=== PATIENT | female | born 1955 | race Caucasian/White ===

== ENCOUNTER → 2017-10-22 11:10 | Outpatient (REF) | payer OTHER, SELFPAY ==
[2017-10-22 13:48] LABS: Basophils % 0.6 % (0.1-2.0); Eosinophils # 0.2 K/mm3 (0.0-0.4); Eosinophils % 3.9 % (0.1-12.0); Hematocrit 42.4 % (37.0-47.0); Hemoglobin 13.2 g/dL (12.2-16.2); Lymphocytes # 1.4 K/mm3 (0.7-4.5); Lymphocytes % 23.7 K/mm3 (10-50); Mean Corpuscular HGB Conc 31.2 g/dL (31.8-35.4); Mean Corpuscular Hemoglobin 26.4 pg (27.0-31.2); Mean Corpuscular Volume 84.9 fl (81-99); Mean Platelet Volume 8.3 fl (7.4-10.4); Monocytes # 0.4 K/mm3 (0.1-1.0); Monocytes % 7.3 % (1.7-9.3); Neutrophils # 3.9 K/mm3 (1.8-7.8); Neutrophils % 64.5 % (37.0-80.0); Platelet Count 310 K/mm3 (142-424)
[2017-10-22 14:35] LABS: Alanine Aminotransferase 22 U/L (12-78); Albumin Level 3.4 gm/dL (3.4-5.0); Albumin/Globulin Ratio 0.8 (1.1-1.8); Alkaline Phosphatase 125 U/L (46-116); Anion Gap 12.9 mEq/L (5-15); Aspartate Amino Transferase 13 U/L (15-37); Bilirubin,Total 0.5 mg/dL (0.2-1.0); Blood Urea Nitrogen 19 mg/dL (7-18); Calcium 9.6 mg/dL (8.5-10.1); Carbon Dioxide 29 mmol/L (21.0-32.0); Chloride 100 mmol/L (98-107); Chol/HDL Ratio 3.7 (1-3.5); Cholesterol 157 mg/dL (140-200); Creatinine,Serum 1.21 mg/dL (0.55-1.02); Estimated Glomerular Filt Rate 45 ml/min (>60); GFR (African American) 55 ML/MIN (>60); Globulin 4.5 gm/dl (1.3-3.2); Glucose 140 mg/dL (74-106); HDL Cholesterol 42 mg/dL (29-89); LDL Cholesterol 95 mg/dL (0-130); Potassium 3.9 mmoL/L (3.5-5.1); Sodium 138 mmol/L (136-145); Thyroid Stimulating Hormone 2.05 uIU/ml (0.358-3.740); Total Protein,Serum 7.9 gm/dL (6.4-8.2); Triglycerides 102 mg/dL (30-200); VLDL Cholesterol 20 mg/dL (0-40)
[2017-10-24 12:01] LABS: Vitamin D 25 Hydroxy 8.1 ng/mL (30.0-100.0)
== END ==
LOC: LAB 11:10
PROVIDERS: Visit Provider Physician Assistant
DX: I10 Essential (primary) hypertension (principal)
CPT/HCPCS: 80053; 80061; 82652; 84436; 84443; 85025

== ENCOUNTER → 2018-03-19 11:13 | Outpatient (REF) | payer OTHER, SELFPAY | LOC: LAB 11:13 | PROVIDERS: Visit Provider Nurse Practitioner Family | DX: R39.89 Other symptoms and signs involving the genitourinary system (principal) | CPT/HCPCS: 87086 ==

== ENCOUNTER → 2019-09-24 13:24 | Outpatient (CLI) | payer OTHER, SELFPAY ==
[2019-09-24 13:34] LABS: Basophils # 0.1 K/mm3 (0-0.2); Basophils % 0.9 % (0.1-2.0); Eosinophils # 0.2 K/mm3 (0.0-0.4); Eosinophils % 3.1 % (0.1-12.0); Hematocrit 44.6 % (37.0-47.0); Hemoglobin 14.3 g/dL (12.2-16.2); Lymphocytes % 19.6 % (10-50); Mean Corpuscular HGB Conc 32.2 g/dL (31.8-35.4); Mean Corpuscular Hemoglobin 27.2 pg (27.0-31.2); Mean Corpuscular Volume 84.5 fl (81-99); Mean Platelet Volume 10.1 fl (7.4-10.4); Monocytes # 0.4 K/mm3 (0.1-1.0); Monocytes % 7.1 % (1.7-9.3); Neutrophils # 3.5 K/mm3 (1.8-7.8); Neutrophils % 69.3 % (37.0-80.0); Platelet Count 272 K/mm3 (142-424); Red Blood Count 5.28 M/mm3 (4.20-5.40); Red Cell Distribution Width 13.9 % (11.5-17.5)
[2019-09-24 14:16] LABS: Alanine Aminotransferase 16 U/L (12-78); Albumin Level 3.5 gm/dL (3.4-5.0); Albumin/Globulin Ratio 0.9 (1.1-1.8); Alkaline Phosphatase 133 U/L (46-116); Anion Gap 14.6 mEq/L (5-15); Aspartate Amino Transferase 15 U/L (15-37); Bilirubin,Total 0.6 mg/dL (0.2-1.0); Blood Urea Nitrogen 14 mg/dL (7-18); Calcium 9.3 mg/dL (8.5-10.1); Carbon Dioxide 27 mmol/L (21.0-32.0); Chloride 96 mmol/L (98-107); Chol/HDL Ratio 5.9 (1-3.5); Cholesterol 177 mg/dL (140-200); Estimated Glomerular Filt Rate 46 ml/min (>60); GFR (African American) 55 ML/MIN (>60); HDL Cholesterol 30 mg/dL (29-89); LDL Cholesterol 89 mg/dL (0-130); Potassium 3.6 mmoL/L (3.5-5.1); Sodium 134 mmol/L (136-145); T4 (Thyroxine) 9.8 ug/dl (4.7-13.3); Thyroid Stimulating Hormone 1.43 uIU/ml (0.358-3.740); Total Protein,Serum 7.5 gm/dL (6.4-8.2); Triglycerides 290 mg/dL (30-200); VLDL Cholesterol 58 mg/dL (0-40)
[2019-09-24 14:50] LABS: Glucose 551 mg/dL (74-106)
[2019-09-24 15:17] LABS: Hemoglobin A1C 11.5 % (0.0-7.0)
[2019-09-25 17:02] LABS: Vitamin D 25 Hydroxy 6.6 ng/mL (30.0-100.0)
== END ==
PROVIDERS: Visit Provider Physician Assistant
DX: I10 Essential (primary) hypertension (principal); E55.9 Vitamin D deficiency, unspecified; R73.09 Other abnormal glucose
CPT/HCPCS: 80053; 80061; 82652; 83036; 84436; 84443; 85025

== ENCOUNTER → 2020-11-01 14:41 | Outpatient (CLI) | payer OTHER, SELFPAY ==
[2020-11-01 15:06] LABS: Basophils % 0.8 % (0.1-2.0); Eosinophils # 0.2 K/mm3 (0.0-0.4); Eosinophils % 3.2 % (0.1-12.0); Hematocrit 42.1 % (37.0-47.0); Hemoglobin 14.1 g/dL (12.2-16.2); Lymphocytes # 1.2 K/mm3 (0.7-4.5); Lymphocytes % 24.9 % (10-50); Mean Corpuscular HGB Conc 33.6 g/dL (31.8-35.4); Mean Corpuscular Hemoglobin 27.3 pg (27.0-31.2); Mean Corpuscular Volume 81.3 fl (81-99); Mean Platelet Volume 9.1 fl (7.4-10.4); Monocytes # 0.4 K/mm3 (0.1-1.0); Neutrophils # 3.1 K/mm3 (1.8-7.8); Neutrophils % 63.1 % (37.0-80.0); Platelet Count 297 K/mm3 (142-424); Red Blood Count 5.18 M/mm3 (4.20-5.40); Red Cell Distribution Width 14.6 % (11.5-17.5); White Blood Count 4.9 K/mm3 (4.8-10.8)
[2020-11-01 16:18] LABS: Hemoglobin A1C 10.9 % (4.0-6.0)
[2020-11-01 16:21] LABS: Alanine Aminotransferase 18 U/L (12-78); Albumin Level 4.4 g/dl (3.5-5.0); Albumin/Globulin Ratio 1.1 (1.1-1.8); Alkaline Phosphatase 110 U/L (38-126); Anion Gap 13.2 mEq/L (5-15); Aspartate Amino Transferase 28 U/L (14-36); Bilirubin,Total 0.6 mg/dl (0.2-1.3); Blood Urea Nitrogen 26 mg/dl (7-17); Calcium 11.2 mg/dl (8.4-10.2); Carbon Dioxide 27 mmol/L (22.0-30.0); Chloride 101 mmol/L (98-107); Chol/HDL Ratio 5.6 (1-3.5); Cholesterol 214 mg/dl (140-200); Estimated Glomerular Filt Rate 56 ml/min (>60); GFR (African American) 68 ML/MIN (>60); Globulin 3.9 g/dL (1.3-3.2); Glucose 227 mg/dl (74-100); HDL Cholesterol 38 mg/dl (40-60); Potassium 4.2 mmoL/L (3.5-5.1); Sodium 137 mmol/L (136-145); Total Protein,Serum 8.3 g/dl (6.3-8.2); Triglycerides 212 mg/dl (30-150); VLDL Cholesterol 42 mg/dL (0-40)
[2020-11-01 16:31] LABS: Direct LDL Cholesterol 135.49 mg/dL (100-129)
[2020-11-01 16:40] LABS: Free T4 (Free Thyroxine) 1.55 ng/dl (0.78-2.19)
[2020-11-01 16:55] LABS: Thyroid Stimulating Hormone 2.17 uIU/mL (0.465-4.68)
[2020-11-01 16:58] LABS: 25-OH Vitamin D, Total < 12.8 ng/mL (30-100)
== END ==
PROVIDERS: Visit Provider Physician Assistant
DX: E11.9 Type 2 diabetes mellitus without complications (principal); E55.9 Vitamin D deficiency, unspecified; I10 Essential (primary) hypertension; Z79.84 Long term (current) use of oral hypoglycemic drugs
CPT/HCPCS: 80053; 80061; 82043; 82306; 83036; 84439; 84443; 85025

== ENCOUNTER → 2023-06-03 23:53 | Outpatient (CLI) | payer OTHER, SELFPAY ==
[2023-06-03 19:24] LABS: Basophils % 0.5 % (0.1-2.0); Eosinophils # 0.2 K/mm3 (0.0-0.4); Eosinophils % 3.5 % (0.1-12.0); Hemoglobin 14.6 g/dL (12.2-16.2); Lymphocytes # 1.3 K/mm3 (0.7-4.5); Lymphocytes % 21.3 % (10-50); Mean Corpuscular HGB Conc 34.6 g/dL (31.8-35.4); Mean Corpuscular Hemoglobin 29.2 pg (27.0-31.2); Mean Corpuscular Volume 84.4 fl (81-99); Mean Platelet Volume 10.7 fl (7.4-10.4); Monocytes # 0.4 K/mm3 (0.1-1.0); Monocytes % 7.5 % (1.7-9.3); Neutrophils % 67.3 % (37.0-80.0); Platelet Count 255 K/mm3 (142-424); Red Blood Count 4.98 M/mm3 (4.20-5.40); Red Cell Distribution Width 14.6 % (11.5-17.5); White Blood Count 5.9 K/mm3 (4.8-10.8)
[2023-06-03 19:32] LABS: Alanine Aminotransferase 16 U/L (12-78); Albumin Level 4.1 g/dl (3.5-5.0); Albumin/Globulin Ratio 1.1 (1.1-1.8); Alkaline Phosphatase 185 U/L (38-126); Anion Gap 15.3 mEq/L (5-15); Aspartate Amino Transferase 24 U/L (14-36); Bilirubin,Total 0.4 mg/dl (0.2-1.3); Blood Urea Nitrogen 20 mg/dl (7-17); Calcium 9.6 mg/dl (8.4-10.2); Carbon Dioxide 28 mmol/L (22.0-30.0); Chloride 98 mmol/L (98-107); Chol/HDL Ratio 4.5 (1-3.5); Cholesterol 194 mg/dl (140-200); Estimated Glomerular Filt Rate 63 ml/min (>60); GFR (African American) 76 ML/MIN (>60); Globulin 3.9 g/dL (1.3-3.2); Glucose 390 mg/dl (74-100); HDL Cholesterol 43 mg/dl (40-60); Iron 62 ug/dL (37-170); Potassium 4.3 mmoL/L (3.5-5.1); Sodium 137 mmol/L (136-145); Triglycerides 223 mg/dl (30-150); VLDL Cholesterol 45 mg/dL (0-40)
[2023-06-03 19:49] LABS: 25-OH Vitamin D, Total 13.7 ng/mL (30-100)
[2023-06-03 19:53] LABS: T4 (Thyroxine) 10.1 ug/dl (5.53-11.0)
[2023-06-03 19:55] LABS: Total Iron Binding Capacity 354 ug/dL (265-497)
[2023-06-03 20:02] LABS: Thyroid Stimulating Hormone 2.06 uIU/mL (0.465-4.68)
[2023-06-03 20:10] LABS: Ferritin 36.3 ng/ml (11.1-264)
[2023-06-03 20:26] LABS: Vitamin B12 255 pg/mL (239-931)
[2023-06-03 20:45] LABS: Hemoglobin A1C 11.3 % (4.0-6.0)
== END ==
PROVIDERS: PCP Physician Assistant; Visit Provider Physician Assistant
DX: E11.9 Type 2 diabetes mellitus without complications (principal); I10 Essential (primary) hypertension; E55.9 Vitamin D deficiency, unspecified; Z68.30 Body mass index [BMI] 30.0-30.9, adult; Z79.84 Long term (current) use of oral hypoglycemic drugs
CPT/HCPCS: 80053; 80061; 82043; 82306; 82607; 82728; 83036; 83540; 83550; 84436; 84443; 85025

== ENCOUNTER 2023-11-08 11:24 | Emergency (ER) | payer OTHER, SELFPAY ==
[2023-11-08 11:25] VITALS: BP 203/96; PULSE 83; RESP 15; TEMP 36.5; O2SAT 95; BMI 31.6
[2023-11-08 11:31] VITALS: BP 217/99; PULSE 82; O2SAT 97
--- NOTE | 2023-11-08 11:33 | ECG_ITS ---
APPROVED REPORT Exam: Resting ECG HR:79 bpm ECG Measurements Heart Rate 79 AXES UT 182 P 63 QRSd 85 QRS 72 QT 384 T 74 QTc 419 Conclusion SINUS RHYTHM NORMAL ECG UNCONFIRMED REPORT Electronically signed by : John Paul Amado, 11/09/2023 14:20:57
--- NOTE | 2023-11-08 11:54 | CT_ITS ---
FINAL REPORT CLINICAL HISTORY: RUE and RLE weakness 1800 yesterday FINDINGS: Axial images of the head were obtained without contrast. Coronal reformatted images were also obtained. This study was performed with techniques to keep radiation doses as low as reasonably achievable (ALARA). Individualized dose reduction techniques using automated exposure control or adjustment of mA and/or kV according to the patient's size were employed. There is generalized age-appropriate atrophy. Periventricular low-attenuation areas are seen consistent with mild chronic ischemic changes. There is no evidence of intracranial hemorrhage or mass. There is no evidence of acute infarct. There is no evidence of shift of the midline structures. No skull abnormality is seen on the bone window images. IMPRESSION: Atrophy and mild periventricular chronic ischemic changes. No acute intracranial abnormality identified. Reviewed, Interpreted and Dictated by Lisandro Recinos III, MD Transcribed by Ai Teran Authenticated and [facility]
--- NOTE | 2023-11-08 11:58 | ED_ITS ---
Discharge Plan Disposition Patient Disposition: Home, Self-Care Prescriptions Prescriptions: No Action escitalopram oxalate [Lexapro] 20 mg tablet 20 mg PO QDAY 30 Days Qty: 30 2RF Vraylar 1.5 mg capsule 1.5 mg PO DAILY Qty: 30 2RF aspirin 81 mg tablet,delayed release (DR/EC) 81 mg PO DAILY Qty: 90 3RF (DME) blood-glucose meter [Blood Glucose Monitoring] Kit See Rx Instructions .ROUTE .MEDSUPPLY Qty: 1 0RF Rx Instructions: As directed (DME) Blood Glucose Test Strip See Rx Instructions .ROUTE .MEDSUPPLY Qty: 50 2RF Rx Instructions: once daily carvedilol 6.25 mg tablet See Rx Instructions .ROUTE .COMPLEX Qty: 180 0RF Dose Instruction: TAKE 1 TABLET BY MOUTH TWICE DAILY FOR BLOOD PRESSURE Rx Instructions: TAKE 1 TABLET BY MOUTH TWICE DAILY FOR BLOOD PRESSURE cholecalciferol (vitamin D3) [Vitamin D3] 25 mcg (1,000 unit) capsule See Rx Instructions .ROUTE .COMPLEX Qty: 30 0RF Dose Instruction: TAKE 1 CAPSULE BY MOUTH ONCE DAILY WITH A MEAL FOR SUPPLEMENT Rx Instructions: TAKE 1 CAPSULE BY MOUTH ONCE DAILY WITH A MEAL FOR SUPPLEMENT ergocalciferol (vitamin D2) 1,250 mcg (50,000 unit) capsule See Rx Instructions .ROUTE .COMPLEX Qty: 4 0RF Dose Instruction: Take 1 capsule by mouth once a week Rx Instructions: Take 1 capsule by mouth once a week Januvia 100 mg tablet 100 mg PO DAILY Qty: 30 2RF Farxiga 10 mg tablet 10 mg PO DAILY Qty: 30 2RF ergocalciferol (vitamin D2) 1,250 mcg (50,000 unit) capsule 1,250 mcg PO WEEKLY Qty: 5 2RF albuterol sulfate [Ventolin HFA] 90 mcg/actuation HFA aerosol inhaler See Rx Instructions .ROUTE .COMPLEX Qty: 18 0RF Dose Instruction: INHALE 2 PUFFS BY MOUTH EVERY 4 TO 6 HOURS NEEDED FOR SHORTNESS OF BREATH OR WHEEZING . APPOINTMENT REQUIRED FOR FUTURE REFILLS Rx Instructions: INHALE 2 PUFFS BY MOUTH EVERY 4 TO 6 HOURS NEEDED FOR SHORTNESS OF BREATH OR WHEEZING . APPOINTMENT REQUIRED FOR FUTURE REFILLS atorvastatin 20 mg tablet See Rx Instructions .ROUTE .COMPLEX Qty: 30 0RF Dose Instruction: TAKE 1 TABLET BY MOUTH AT BEDTIME Rx Instructions: TAKE 1 TABLET BY MOUTH AT BEDTIME glipizide 5 mg tablet extended release 24hr See Rx Instructions .ROUTE .COMPLEX Qty: 30 0RF Dose Instruction: TAKE 1 TABLET BY MOUTH ONCE DAILY . APPOINTMENT REQUIRED FOR FUTURE REFILLS Rx Instructions: TAKE 1 TABLET BY MOUTH ONCE DAILY . APPOINTMENT REQUIRED FOR FUTURE REFILLS lisinopril 5 mg tablet See Rx Instructions .ROUTE .COMPLEX Qty: 30 0RF Dose Instruction: TAKE 1 TABLET BY MOUTH ONCE DAILY. APPOINTMENT REQUIRED FOR FUTURE REFILLS Rx Instructions: TAKE 1 TABLET BY MOUTH ONCE DAILY. APPOINTMENT REQUIRED FOR FUTURE REFILLS triamterene-hydrochlorothiazid 37.5-25 mg tablet See Rx Instructions .ROUTE .COMPLEX Qty: 90 0RF Dose Instruction: TAKE 1 TABLET BY MOUTH ONCE DAILY . APPOINTMENT REQUIRED FOR FUTURE REFILLS Rx Instructions: TAKE 1 TABLET BY MOUTH ONCE DAILY . APPOINTMENT REQUIRED FOR FUTURE REFILLS metformin 500 mg tablet extended release 24 hr 500 mg PO DAILY Qty: 30 2RF Referrals Follow up/Referrals: Verenice Contreras PA [Primary Care Provider] - See instructions Geremias Brush DO [Staff Physician] - See instructions Activity Restrictions/Add. Instructions Additional Instructions/Restrictions: No objective weakness was identified on your physical exam in your right upper and right lower extremity. The noncontrasted CT scan of your head did not demonstrate a stroke. No other emergent cardiovascular or neurovascular emergency was identified. Cannot rule out a TIA as discussed and we were unable to get vascular imaging due to your refusal to allow us to administer contrast on your CT scans. Nonetheless I do not believe you had a TIA but this is possible. I advised that you closely follow-up to primary care doctor and return to the emergency department with any recurrence or worsening of your neurologic symptoms. Lastly regarding her chronic knee pain referral has been made to our orthopedic surgeon for evaluation of likely chronic degenerative disease and management options associated with that. Clinical Impressions Clinical Impression: Arm pain, right, Leg pain, right Discharge ED Provider: Rere Amado General Adult [facility] General Chief complaint: Neuro Symptoms/Deficit Stated complaint: weakness Time Seen by Provider: 11/08/23 11:41 Mode of Arrival: Ambulatory Source of Information: Patient and EMS Limitations: No Limitations Description of Symptoms (Recalled from ER Triage Doc. by RN): pt presents to ED via EMS for stroke like symptoms, weakness. symptoms began last night 1800. pts daughter at bedside also reports pt has had fall last night and this morning. pt reports she got weak and her right leg gave out . pt reports feeling weakness in right arm. History of Present Illness HPI narrative: Patient is a 68-year-old diabetic with hypertension who presents today with concerns for right upper and right lower extremity weakness which began yesterday around 1600. States that she felt her right leg give out and her right upper extremity having difficulty with movement but states that during the entire time she has been able to move it without difficulty and just had a sensation of feeling heavy. Symptoms have been very mild the entirety of the course. No fevers chills cough urinary symptoms or other concerns. She does want to get checked out. No history of CVA. Related Data Previous Rx's Medication Instructions Recorded aspirin 81 mg tablet,delayed 81 mg PO DAILY Heart disease #90 07/28/19 release tabs blood-glucose meter (Blood Glucose #1 ea 09/25/19 Monitoring kit) blood sugar diagnostic (Blood #50 ea 10/07/19 Glucose Test strips) carvedilol 6.25 mg tablet See Rx Instructions .Route 12/29/19 .COMPLEX #180 tabs cholecalciferol (vitamin D3) 25 See Rx Instructions .Route 03/04/23 mcg (1,000 unit) capsule (Vitamin .COMPLEX #30 caps D3) ergocalciferol (vitamin D2) 1,250 See Rx Instructions .Route 03/04/23 mcg (50,000 unit) capsule .COMPLEX #4 caps cariprazine 1.5 mg capsule 1.5 mg PO DAILY #30 caps 06/03/23 (Vraylar) escitalopram oxalate 20 mg tablet 20 mg PO QDAY 30 days #30 tabs 06/03/23 (Lexapro) dapagliflozin propanediol 10 mg 10 mg PO DAILY #30 tabs 06/05/23 tablet (Farxiga) ergocalciferol (vitamin D2) 1,250 1,250 mcg PO WEEKLY #5 caps 06/05/23 mcg (50,000 unit) capsule sitagliptin phosphate 100 mg 100 mg PO DAILY #30 tabs 06/05/23 tablet (Januvia) Ventolin HFA 90 mcg/actuation See Rx Instructions .Route 09/19/23 aerosol inhaler (albuterol sulfate) .COMPLEX #18 grams atorvastatin 20 mg tablet See Rx Instructions .Route 09/19/23 .COMPLEX #30 tabs glipizide 5 mg tablet, extended See Rx Instructions .Route 09/19/23 release 24 hr .COMPLEX #30 tabs lisinopril 5 mg tablet See Rx Instructions .Route 09/19/23 .COMPLEX #30 tabs metformin 500 mg tablet,extended 500 mg PO DAILY #30 tabs 09/19/23 release 24 hr triamterene 37.5 See Rx Instructions .Route 09/19/23 mg-hydrochlorothiazide 25 mg tablet .COMPLEX #90 tabs Allergies Allergy/AdvReac Type Severity Reaction Status Date / Time penicillin G Allergy Mild Hives Verified 06/03/23 10:29 Sulfa (Sulfonamide AdvReac Intermediate rash on Verified 06/03/23 10:29 Antibiotics) [facility] Disclaimer: The information contained in this section may have been updated after the patient was seen, as this information can be updated by other users. Medical History Depression Hypertension Vitamin D deficiency Social History Smoking Status: Never smoker alcohol intake: never substance use type: denies use current occupational status: retired Travel in the last 8 weeks: None ROS Obtained: Yes All systems reviewed & no additional complaints except as documented Physical Exam General General appearance: alert and in no apparent distress Respiratory Respiratory exam: Present normal lung sounds bilaterally Cardiovascular Cardiovascular exam: Present regular rate and normal rhythm Neurological Exam Neurological exam: Present alert, oriented X3, CN II-XII intact, normal gait and other (Specifically no right pronator drift she has proximal and distal strength in right upper and right lower extremity); Absent motor sensory deficit Medical Decision Making Ki Inquiry Pt receiving controlled substance: No Vital Signs: 11/08/23 11:25 11/08/23 11:31 11/08/23 12:00 Temperature 97.7 F Temperature Source Oral Pulse Rate 82 77 Pulse Rate [Left Radial] 83 Respiratory Rate 15 Blood Pressure 217/99 H 183/98 H Blood Pressure [Right Arm] 203/96 H Blood Pressure Mean 111 126 Blood Pressure Mean [Right Arm] 131 02 Sat by Pulse Oximetry 95 97 97 Oxygen Delivery Method Room Air Room Air Room Air 11/08/23 13:00 Temperature Temperature Source Pulse Rate 80 Pulse Rate [Left Radial] Respiratory Rate 20 Blood Pressure 149/75 H Blood Pressure [Right Arm] Blood Pressure Mean 115 Blood Pressure Mean [Right Arm] 02 Sat by Pulse Oximetry 97 Oxygen Delivery Method Lab Data Lab results reviewed: Yes I reviewed the patient's lab results. Lab Results 11/08/23 11:27: WBC 7.1, RBC 5.21, Hgb 14.5, Hct 43.7, MCV 83.9, MCH 27.8, MCHC 33.2, RDW 14.3, Plt Count 233, MPV 8.5, Neut % (Auto) 72.8, Lymph % (Auto) 18.4, [place] % (Auto) 6.6, Eos % (Auto) 1.4, Baso % (Auto) 0.9, Neut # (Auto) 5.2, Lymph # (Auto) 1.3, [place] # (Auto) 0.5, Eos # (Auto) 0.1, Baso # (Auto) 0.1, PT 10.7, INR 0.99, APTT 24.9, Sodium 135 L, Potassium 3.9, Chloride 100, Carbon Dioxide 28, Anion Gap 10.9, BUN 17, Creatinine 0.90, Estimated Creat Clear 70, Estimated GFR 62, Est GFR ( Amer) 76, Glucose 310 H, Calcium 9.5, Total Bilirubin 0.7, AST 24, ALT 21, Alkaline Phosphatase 153 H, Troponin I < 0.01, Total Protein 7.5, Albumin 4.0, Globulin 3.5 H, Albumin/Globulin Ratio 1.1 11/08/23 11:27 11/08/23 11:27 Orders (Tests/Meds): ED MEDICATIONS Generic Name Dose Route Start Last Admin Trade Name Freq PRN Reason Stop Dose Admin Ketorolac Tromethamine 15 mg 11/08/23 13:33 Ketorolac 30mg/Ml Vial IV 11/08/23 13:34 ONCE ONE Discontinued Medications Generic Name Dose Route Start Last Admin Trade Name Freq PRN Reason Stop Dose Admin Acetaminophen 1,000 mg 11/08/23 13:21 11/08/23 13:33 Acetaminophen 500mg Tab PO 11/08/23 13:22 Not Given ONCE ONE Lactated Ringer's 1,000 mls @ 999 mls/hr 11/08/23 12:00 11/08/23 12:00 Lactated Ringer's 1000 Ml Bag IV 11/08/23 13:00 999 mls/hr .Q1H1M SEEMA Administration ORDERS Category Date Time Status CT head/brain wo con Stat Cat Scan 11/08/23 11:54 Completed CBC w/Auto Diff [Complete Blood Count Auto Diff] Stat Lab 11/08/23 11:27 Completed CMP [Comprehensive Metabolic Panel] Stat Lab 11/08/23 11:27 Completed PT/PTT Stat Lab 11/08/23 11:27 Completed Trop I [Troponin I] Stat Lab 11/08/23 11:27 Completed Troponin I Q3H Lab 11/08/23 15:00 Ordered Troponin I Q3H Lab 11/08/23 18:00 Ordered Medical Decision Narrative: Patient with above history and physical. Objectively she has an NIH of 0 she claims that her symptoms are ongoing but objectively there is no weakness. Will get a noncontrasted CT scan of her head as well as CT angio of head and neck. She does have chronic discomfort in both of these extremities and states she has had some pain which she feels may have been the cause of the sensation of them going out on her. If her workup is negative I do not believe that this is a TIA and she will be reassured. Will reassess shortly. EKG performed at person interpreted shows a ventricular rate of 79 normal sinus rhythm no acute ischemic changes or significant conduction abnormalities there is normal axis. Reassessment 1:36 PM serial neurologic exams are normal. Patient actually refused angiography or contrasted studies. She refused on the basis of having contrast administered many years ago which made her very warm. No history of anaphylaxis etc. I had an extensive discussion with her about this and she understood the risk of not getting contrasted studies and understood that I would not be able to see any vascular pathology and she understood this and still refused. Noncontrasted CT scan of the head performed which I personally interpreted also reviewed radiology read which showed no acute intracranial pathology. Again her serial neurologic exams are normal and her initial neurologic exam for me was normal. She did have some chronic knee pain which has been as stated above causing her to lose some tone which is likely the cause of the weakness that she demonstrated or discussed. She was able to walk without difficulty with a walker which she will be using at home. A referral was made to orthopedic surgeon for further evaluation and management of her chronic knee pain. She has been advised to return to the emergency department with any recurrence or worsening of her neurologic symptoms. Cannot rule out a TIA right now and I discussed with the family and they are understanding. Not clinically diagnosing her with that at this point without any objective abnormalities on neurologic exam. Critical Care Critical Care Time Critical Care Time: No
[2023-11-08 12:00] VITALS: BP 183/98; PULSE 77; O2SAT 97
[2023-11-08] MEDS: LACTATED RINGERS 1000ML 1,000 ML 999 ML IV (12:00)
[2023-11-08 12:06] LABS: Chloride 100 mmol/L (98-107); Potassium 3.9 mmoL/L (3.5-5.1); Sodium 135 mmol/L (136-145)
[2023-11-08 12:09] LABS: Alanine Aminotransferase 21 U/L (12-78); Albumin/Globulin Ratio 1.1 (1.1-1.8); Alkaline Phosphatase 153 U/L (38-126); Anion Gap 10.9 mEq/L (5-15); Aspartate Amino Transferase 24 U/L (14-36); Bilirubin,Total 0.7 mg/dl (0.2-1.3); Blood Urea Nitrogen 17 mg/dl (7-17); Calcium 9.5 mg/dl (8.4-10.2); Carbon Dioxide 28 mmol/L (22.0-30.0); Creatinine Clearance Estimated 70 mL/min (50-200); Estimated Glomerular Filt Rate 62 ml/min (>60); GFR (African American) 76 ML/MIN (>60); Globulin 3.5 g/dL (1.3-3.2); Glucose 310 mg/dl (74-100); Total Protein,Serum 7.5 g/dl (6.3-8.2)
[2023-11-08 12:10] LABS: Basophils # 0.1 K/mm3 (0-0.2); Basophils % 0.9 % (0.1-2.0); Eosinophils # 0.1 K/mm3 (0.0-0.4); Eosinophils % 1.4 % (0.1-12.0); Hematocrit 43.7 % (37.0-47.0); Hemoglobin 14.5 g/dL (12.2-16.2); Lymphocytes # 1.3 K/mm3 (0.7-4.5); Lymphocytes % 18.4 % (10-50); Mean Corpuscular HGB Conc 33.2 g/dL (31.8-35.4); Mean Corpuscular Hemoglobin 27.8 pg (27.0-31.2); Mean Corpuscular Volume 83.9 fl (81-99); Mean Platelet Volume 8.5 fl (7.4-10.4); Monocytes # 0.5 K/mm3 (0.1-1.0); Monocytes % 6.6 % (1.7-9.3); Neutrophils # 5.2 K/mm3 (1.8-7.8); Neutrophils % 72.8 % (37.0-80.0); Platelet Count 233 K/mm3 (142-424); Red Blood Count 5.21 M/mm3 (4.20-5.40); Red Cell Distribution Width 14.3 % (11.5-17.5); White Blood Count 7.1 K/mm3 (4.8-10.8)
[2023-11-08 12:11] LABS: Activated Partial Thrombo Time 24.9 seconds (22.8-30.6); INR 0.99 (0.9-1.1); Prothrombin Time 10.7 seconds (10.1-12.5)
[2023-11-08 12:22] LABS: Troponin I < 0.01 ng/ml (0.00-0.034)
[2023-11-08 13:00] VITALS: BP 149/75; PULSE 80; RESP 20; O2SAT 97
--- NOTE | 2023-11-08 13:24 | PC.NURSE ---
Dr. Amado is at bedside discussing results and POC
[2023-11-08] MEDS: KETOROLAC 30MG/ML VIAL 15 MG IV (13:37)
[2023-11-08 13:41] VITALS: BP 158/100; PULSE 81; RESP 20; TEMP 36.6; O2SAT 96
== END 2023-11-08 13:45 | disposition home or self-care (01) ==
PROVIDERS: Emergency Provider Student in an Organized Health Care Education/Training Program; PCP Physician Assistant
DX: R53.1 Weakness (principal); E11.9 Type 2 diabetes mellitus without complications; I10 Essential (primary) hypertension
CPT/HCPCS: 70450; 80053; 84484; 85025; 85610; 85730; 93005; 96361; 96374; 99285

== ENCOUNTER 2023-11-09 02:40 | Emergency (ER) | payer OTHER, SELFPAY ==
[2023-11-09 02:41] VITALS: BP 201/90; PULSE 89; RESP 18; TEMP 36.9; O2SAT 98; BMI 31.4
--- NOTE | 2023-11-09 02:50 | CT_ITS ---
PROCEDURE INFORMATION: Exam: CTA Head With Contrast, Arteriography Exam date and time: 11/09/2023 3:02 AM Age: 68 years old Clinical indication: Stroke-like symptoms; Right facial droop; Additional info: Stroke alert R side deficits TECHNIQUE: Imaging protocol: Computed tomographic angiography of the head with contrast. Exam focused on the arteries. 3D rendering (Not supervised by radiologist): MIP and/or 3D reconstructed images were created by the technologist. Radiation optimization: All CT scans at this facility use at least one of these dose optimization techniques: automated exposure control; mA and/or kV adjustment per patient size (includes targeted exams where dose is matched to clinical indication); or iterative reconstruction. Contrast material: ISVOUE 370; Contrast volume: 100 ml; Contrast route: INTRAVENOUS (IV); COMPARISON: CT HEAD/BRAIN WO CON 11/09/2023 3:00 AM FINDINGS: ANTERIOR CIRCULATION: Right internal carotid artery: Calcific plaque in right internal carotid artery. At least mild stenosis and ophthalmic segment. No occlusion or aneurysm. Right middle cerebral artery: No occlusion or significant stenosis. No aneurysm. Right anterior cerebral artery: No occlusion or significant stenosis. No aneurysm. Left internal carotid artery: Calcific plaque in left internal carotid artery. At least mild stenosis in the ophthalmic segment. No occlusion or aneurysm. Left middle cerebral artery: No occlusion or significant stenosis. No aneurysm. Left anterior cerebral artery: No occlusion or significant stenosis. No aneurysm. POSTERIOR CIRCULATION: Right vertebral artery: No occlusion or significant stenosis. No aneurysm. Left vertebral artery: No occlusion or significant stenosis. No aneurysm. Basilar artery: No occlusion or significant stenosis. No aneurysm. Right posterior cerebral artery: No occlusion or significant stenosis. No aneurysm. Left posterior cerebral artery: No occlusion or significant stenosis. No aneurysm. Veins: The internal cerebral veins, vein of Ricky, straight sinus, superior sagittal sinus and bilateral transverse and sigmoid sinuses are grossly patent. Brain: No definite mass, mass effect, or midline shift. Cerebral ventricles: No ventriculomegaly. Bones/joints: Unremarkable. No acute fracture. Soft tissues: Unremarkable. IMPRESSION: 1. No large vessel occlusion. 2. Dense calcific plaque in both cavernous and supraclinoid internal carotid arteries, with at least mild stenosis in the ophthalmic segment of each.
--- NOTE | 2023-11-09 02:50 | CT_ITS ---
PROCEDURE INFORMATION: Exam: CT Head Without Contrast Exam date and time: 11/09/2023 3:00 AM Age: 68 years old Clinical indication: Stroke-like symptoms; Right facial droop; Additional info: Stroke alert TECHNIQUE: Imaging protocol: Computed tomography of the head without contrast. Radiation optimization: All CT scans at this facility use at least one of these dose optimization techniques: automated exposure control; mA and/or kV adjustment per patient size (includes targeted exams where dose is matched to clinical indication); or iterative reconstruction. Other technique: STROKE PROTOCOL was implemented. COMPARISON: CT HEAD/BRAIN WO CON 11/08/2023 12:22 PM FINDINGS: Brain: No acute intracranial hemorrhage or acute large territory infarct. Mild chronic white matter changes, likely secondary to chronic small-vessel ischemic changes. Subtle small hypodense area in the left atkins radiata, unchanged from earlier CT. Cerebral ventricles: No ventriculomegaly. Paranasal sinuses: Visualized sinuses are unremarkable. No fluid levels. Mastoid air cells: Visualized mastoid air cells are well aerated. Bones/joints: Unremarkable. No acute fracture. Soft tissues: Unremarkable. IMPRESSION: 1. No significant interval change. 2. No acute intracranial hemorrhage or acute large territory infarct. 3. Subtle small hypodense area in the left atkins radiata, unchanged from earlier CT. Could represent asymmetric chronic microvascular changes, but can not exclude an acute/subacute lacunar infarct. Consider further evaluation with MRI. ASSESSMENT: ASPECTS ([place] Stroke Program Early CT Score) is 10.
--- NOTE | 2023-11-09 02:50 | CT_ITS ---
PROCEDURE INFORMATION: Exam: CTA Neck With Contrast Exam date and time: 11/09/2023 3:02 AM Age: 68 years old Clinical indication: Stroke-like symptoms; Right facial droop; Additional info: Stroke alert TECHNIQUE: Imaging protocol: Computed tomographic angiography of the neck with contrast. Exam focused on the cervical segments of the vasculature. 3D rendering (Not supervised by radiologist): MIP and/or 3D reconstructed images were created by the technologist. Radiation optimization: All CT scans at this facility use at least one of these dose optimization techniques: automated exposure control; mA and/or kV adjustment per patient size (includes targeted exams where dose is matched to clinical indication); or iterative reconstruction. Contrast material: ISOVEU 370; Contrast volume: 100 ml; Contrast route: INTRAVENOUS (IV); COMPARISON: CT ANGIO HEAD 11/09/2023 3:02 AM FINDINGS: Right common carotid artery: No stenosis. No dissection or occlusion. Right internal carotid artery: Moderate calcific plaque in proximal right ICA. No significant stenosis. No occlusion. No dissection. Right external carotid artery: No occlusion or stenosis of the origin. Left common carotid artery: No stenosis. No dissection or occlusion. Left internal carotid artery: Atwv-[id number] calcific plaque in proximal left ICA. No significant stenosis. No occlusion. No dissection. Left external carotid artery: No occlusion or stenosis of the origin. Right vertebral artery: Lfrllneb-yx-[id number] stenosis in proximal right vertebral artery just distal to its origin. No right vertebral artery occlusion or dissection. Left vertebral artery: No stenosis. No dissection or occlusion. Soft tissues: Normal. No significant soft tissue swelling. Bones/joints: No acute fracture. Lungs: Visualized lung apices are clear. IMPRESSION: 1. Nnkshcys-nd-sflfve stenosis in proximal right vertebral artery just distal to its origin. 2. No significant carotid stenosis. 3. No occlusion or dissection. REFERENCES: NASCET CRITERIA. The degree of stenosis in the cervical segment of the internal carotid artery is based on NASCET criteria. Normal is no stenosis. Mild is less than 50% stenosis. Moderate is 50-69% stenosis. Severe is 70% to 99% stenosis. Total occlusion is no detectable patent lumen.
--- NOTE | 2023-11-09 02:55 | HMH.EDGENADL ---
Discharge Plan Disposition Patient Disposition: Xfer Short-Term Hosp Condition: Good Chief Complaint: Neuro Symptoms/Deficit Prescriptions Prescriptions: No Action atorvastatin 20 mg tablet 20 mg PO HS Patient Comments: TAKE 1 TABLET BY MOUTH AT BEDTIME glipizide 5 mg tablet extended release 24hr 5 mg PO DAILY Patient Comments: TAKE 1 TABLET BY MOUTH ONCE DAILY . APPOINTMENT REQUIRED FOR FUTURE REFILLS triamterene-hydrochlorothiazid 37.5-25 mg tablet 1 tab PO DAILY Patient Comments: TAKE 1 TABLET BY MOUTH ONCE DAILY . APPOINTMENT REQUIRED FOR FUTURE REFILLS lisinopril 5 mg tablet 5 mg PO DAILY Patient Comments: TAKE 1 TABLET BY MOUTH ONCE DAILY . APPOINTMENT REQUIRED FOR FUTURE REFILLS ergocalciferol (vitamin D2) 1,250 mcg (50,000 unit) capsule 1,250 mcg PO WEEKLY Patient Comments: TAKE 1 CAPSULE BY MOUTH ONCE A WEEK albuterol sulfate [Ventolin HFA] 90 mcg/actuation HFA aerosol inhaler 2 inh INHALATION Q4-6H PRN (Reason: Shortness Of Breath Or Wheezing) Patient Comments: INHALE 2 PUFFS BY MOUTH EVERY 4 TO 6 HOURS NEEDED FOR SHORTNESS OF BREATH FOR WHEEZING . APPOINTMENT REQUIRED FOR FUTURE REFILLS metformin 500 mg tablet extended release 24 hr 500 mg PO DAILY Patient Comments: TAKE 1 TABLET BY MOUTH ONCE DAILY escitalopram oxalate 20 mg tablet 20 mg PO DAILY Patient Comments: TAKE 1 TABLET BY MOUTH ONCE DAILY Januvia 100 mg tablet 100 mg PO DAILY Patient Comments: TAKE 1 TABLET BY MOUTH ONCE DAILY dapagliflozin propanediol [Farxiga] 10 mg tablet 10 mg PO DAILY Patient Comments: TAKE 1 TABLET BY MOUTH ONCE DAILY Vraylar 1.5 mg capsule 1.5 mg PO DAILY Patient Comments: TAKE 1 CAPSULE BY MOUTH ONCE DAILY Referrals Follow up/Referrals: Verenice Contreras PA [Primary Care Provider] - See instructions Clinical Impressions Clinical Impression: Acute right-sided weakness, Carotid stenosis, left Discharge ED Provider: Desiree Aj General Adult HPI General Chief complaint: Neuro Symptoms/Deficit Stated complaint: R sided weakness Time Seen by Provider: 11/09/23 02:49 Mode of Arrival: EMS Source of Information: Patient Limitations: No Limitations Description of Symptoms (Recalled from ER Triage Doc. by RN): 68 F presents from home via EMS with 48 hours of stroke like symptoms. Patient specifically reports right arm heaviness and right leg heaviness. History of Present Illness HPI narrative: 68-year-old female with a history of diabetes and hypertension presents to the ER with concerns of right-sided weakness reporting right arm and leg heaviness as well as dry mouth, difficulty speaking. Patient states her symptoms onset over 48 hours ago. She was evaluated yesterday in our ER and declined contrasted exams at that time because she does not like the hot feeling she gets all over from contrast. She has never had true allergic reaction from contrast. Patient states that after her evaluation yesterday she was told they did not see obvious evidence of a stroke and patient was discharged. She states she went to bed around 9 PM feeling the same as when she had left the ER yesterday. She woke up shortly prior to arrival and called EMS because she felt more weak. She also fell when EMS attempted to ambulate her out of her house. Patient states she also fell in the bathroom yesterday. Related Data Home Medications Medication Instructions Recorded Confirmed albuterol sulfate 90 mcg/actuation 2 inh inhalation Q4-6H PRN 11/09/23 11/09/23 aerosol inhaler (Ventolin HFA) Shortness Of Breath Or Wheezing atorvastatin 20 mg tablet 20 mg PO HS 11/09/23 11/09/23 cariprazine 1.5 mg capsule 1.5 mg PO DAILY 11/09/23 11/09/23 (Vraylar) dapagliflozin propanediol 10 mg 10 mg PO DAILY 11/09/23 11/09/23 tablet (Farxiga) ergocalciferol (vitamin D2) 1,250 1,250 mcg PO WEEKLY 11/09/23 11/09/23 mcg (50,000 unit) capsule escitalopram oxalate 20 mg tablet 20 mg PO DAILY 11/09/23 11/09/23 glipizide 5 mg tablet, extended 5 mg PO DAILY 11/09/23 11/09/23 release 24 hr lisinopril 5 mg tablet 5 mg PO DAILY 11/09/23 11/09/23 metformin 500 mg tablet,extended 500 mg PO DAILY 11/09/23 11/09/23 release 24 hr sitagliptin phosphate 100 mg 100 mg PO DAILY 11/09/23 11/09/23 tablet (Januvia) triamterene 37.5 1 tab PO DAILY 11/09/23 11/09/23 mg-hydrochlorothiazide 25 mg tablet Allergies Allergy/AdvReac Type Severity Reaction Status Date / Time penicillin G Allergy Mild Hives Verified 06/03/23 10:29 Sulfa (Sulfonamide AdvReac Intermediate rash on Verified 06/03/23 10:29 Antibiotics) entire body [facility] Disclaimer: The information contained in this section may have been updated after the patient was seen, as this information can be updated by other users. Medical History (Updated 11/09/23 @ 03:34 by Desiree Aj MD) High cholesterol Diabetes mellitus Vitamin D deficiency Depression Hypertension Social History Smoking Status: Never smoker alcohol intake: never substance use type: denies use current occupational status: retired Travel in the last 8 weeks: None ROS Obtained: Yes All systems reviewed & no additional complaints except as documented Constitutional Constitutional: Denies chills, Denies fever(s), Denies headache(s) and Reports weakness Eyes Eyes: Denies change in vision ENT Ears, Nose, Mouth, and Throat: Denies dizziness, Denies headache(s), Denies nasal congestion and Denies sore throat Cardiovascular Cardiovascular: Denies chest pain, Denies dyspnea and Denies leg edema Respiratory Respiratory: Denies cough and Denies dyspnea Gastrointestinal Gastrointestingal: Denies constipation, diarrhea, nausea or vomiting Genitourinary Female Genitourinary: Denies dysuria Musculoskeletal Musculoskeletal: Denies arthralgias, Denies myalgias, Denies numbness and Denies tingling Integumentary/Breasts Skin/Breast: Denies change in pigmentation Neurologic Neurologic: Reports abnormal speech, Denies dizziness, Denies headache(s), Denies numbness, Denies tingling and Reports weakness Physical Exam General General appearance: alert and in no apparent distress Head Head exam: atraumatic and normocephalic Eye Eye exam: Present PERRL and EOMI ENT ENT exam: Present mucous membranes moist Neck Neck exam: Present normal inspection and full ROM Chest Chest inspection: Present symmetric chest wall rise Respiratory Respiratory exam: Present normal lung sounds bilaterally; Absent respiratory distress, wheezes or stridor Cardiovascular Cardiovascular exam: Present regular rate and normal rhythm Abdominal Exam Abdominal exam: Present soft; Absent distention or tenderness Extremities Exam Extremities exam: Present full ROM and other (Tenderness of right thigh); Absent tenderness Neurological Exam Neurological exam: Present alert, oriented X3, motor sensory deficit (Drift in right upper and right lower extremity, sensation intact) and other (Mild dysarthria, right-sided facial droop present, initial NIH 4) Psychiatric Psychiatric exam: Present normal affect and normal mood Skin Skin exam: Present warm and dry Medical Decision Making Medical Records MR [place]: I reviewed most recent ED provider note from 11/07. Documented that patient had NIH of 0 and was able to ambulate with a walker. Since that time, patient has had falls with walker and her NIH is now 4. I also reviewed noncontrasted head CT from 11/07 which demonstrates atrophy but no other acute intracranial abnormality. Ki Inquiry Pt receiving controlled substance: No Vital Signs: 11/09/23 02:41 Temperature 98.4 F Temperature Source Oral Pulse Rate [Left] 89 Respiratory Rate 18 Blood Pressure [Right Arm] 201/90 H Blood Pressure Mean [Right Arm] 127 Blood Pressure Source [Right Arm] Automatic Cuff Blood Pressure Position [Right Arm] Sitting 02 Sat by Pulse Oximetry 98 Oxygen Delivery Method Room Air Lab Data Lab Results 11/09/23 02:52: WBC 6.7, RBC 4.87, Hgb 14.3, Hct 41.6, MCV 85.3, MCH 29.3, MCHC 34.3, RDW 14.4, Plt Count 212, MPV 8.4, Neut % (Auto) 72.5, Lymph % (Auto) 18.8, [place] % (Auto) 6.2, Eos % (Auto) 1.5, Baso % (Auto) 0.9, Neut # (Auto) 4.9, Lymph # (Auto) 1.3, [place] # (Auto) 0.4, Eos # (Auto) 0.1, Baso # (Auto) 0.1 11/09/23 02:52 Orders (Tests/Meds): ED MEDICATIONS Generic Name Dose Route Start Last Admin Trade Name Freq PRN Reason Stop Dose Admin Lactated Ringer's 1,000 mls @ 999 mls/hr 11/09/23 02:54 Lactated Ringer's 1000 Ml Bag IV 11/09/23 03:54 .Q1H1M ONE Iopamidol 100 ml 11/09/23 03:03 Iopamidol-370 (76%);100ml Bottle IV 11/09/23 03:04 ONCE ONE Sodium Chloride 10 ml 11/09/23 03:03 Sodium Chloride 0.9% 10ml Syr (Rad Only) IV 11/09/23 03:04 ONCE ONE Sodium Chloride 50 ml 11/09/23 03:03 0.9 % Sodium Chloride 50 Ml Vial IV 11/09/23 03:04 ONCE ONE ORDERS Category Date Time Status CT angio head Stat Cat Scan 11/09/23 02:[address] angio neck Stat Cat Scan 11/09/23 02:[address] head/brain wo con Stat Cat Scan 11/09/23 02:50 Taken CBC w/Auto Diff [Complete Blood Count Auto Diff] Stat Lab 11/09/23 02:52 Completed CMP [Comprehensive Metabolic Panel] Stat Lab 11/09/23 02:52 Received Urinalysis and Microscopic Stat Lab 11/09/23 02:53 Ordered ECG Request Stat Y 11/09/23 02:53 Ordered Medical Decision Narrative: 68-year-old female with a history of diabetes and hypertension presents to the ER with concerns of right-sided weakness, falls. Differential diagnosis includes but is not limited to stroke, TIA, electrolyte abnormality, metabolic derangement, arrhythmia, urinary tract infection. I was present at bedside upon patient's arrival. EMS provided report including that patient nearly fell with them because her right leg gave out when attempting to ambulate. On my initial evaluation, patient is hemodynamically stable though hypertensive, afebrile, oriented, she has an NIH of 4 with right-sided deficits. See physical exam for full details. Given patient was discharged in stable condition and was able to ambulate successfully and had an NIH of 0 according to the previous ED note from less than 24 hours ago, I am concerned for new acute changes. Patient is describing she went to bed feeling the same as when she had left the hospital, so this is being used as her last known normal, 2100. I therefore made the patient a stroke alert since she is more than 4.5 hours from last known normal but I do have concerns for new deficits. 0252 stroke alerted ECG personally interpreted demonstrates normal sinus rhythm, rate 85, normal axis, no interval abnormalities, no STEMI. Patient received IV fluids for treatment. Repeat blood pressure was improved and given concern for possible ischemia, I will tolerate permissive hypertension for improved perfusion. Labs personally reviewed demonstrate hyperglycemia, mild changes in kidney function compared to less than 24 hours ago, normal bilirubin, trace elevation in alkaline phosphatase, nonspecific. XR R femur personally interpreted demonstrates no acute fracture or dislocation of the right femur appreciated. See radiology read for full interpretation. 0309 images available in [facility], messaged [id number] No ELVO per [facility] messaging discussion with Dr. Pollard, interventional neuroradiologist at , they do appreciate L carotid stenosis. CT imaging personally interpreted demonstrate no acute intracranial bleed. See radiology reads for full interpretations. CT angiography with no obvious ischemic lesion or aneurysm. See reads for full interpretations. I believe patient requires transfer to higher level of care for further evaluation and discussed this with the patient. She is amenable to this plan so I reached out to for consultation and transfer. I had an interactive discussion with Dr. Pagan with neurology. I discussed the patient's symptoms including her progression from her initial evaluation yesterday. After reviewing images and patient's persistent NIH of 4 and discussing her case over the phone, patient was accepted for ED to ED transfer to [facility]. Neurologist recommended rectal aspirin and permissive hypertension with systolics up to 220. Aspirin has been ordered and administered. Patient continues to be protecting her airway and hemodynamically stable. NIH is persistently 4. Critical Care Critical Care Time Critical Care Time: Yes Attestation: On 11/09/23, the high probability of a clinically significant, sudden or life threatening deterioration of the following system(s) (Neurologic) required my full and direct attention, intervention and personal management. The time I documented below is in addition to time spent performing reported procedures but includes the following listed in this critical care notation. Total Time Total Critical Care Time: 35
[2023-11-09 03:00] LABS: Basophils # 0.1 K/mm3 (0-0.2); Basophils % 0.9 % (0.1-2.0); Eosinophils # 0.1 K/mm3 (0.0-0.4); Eosinophils % 1.5 % (0.1-12.0); Hematocrit 41.6 % (37.0-47.0); Hemoglobin 14.3 g/dL (12.2-16.2); Lymphocytes # 1.3 K/mm3 (0.7-4.5); Lymphocytes % 18.8 % (10-50); Mean Corpuscular HGB Conc 34.3 g/dL (31.8-35.4); Mean Corpuscular Hemoglobin 29.3 pg (27.0-31.2); Mean Corpuscular Volume 85.3 fl (81-99); Mean Platelet Volume 8.4 fl (7.4-10.4); Monocytes # 0.4 K/mm3 (0.1-1.0); Monocytes % 6.2 % (1.7-9.3); Neutrophils # 4.9 K/mm3 (1.8-7.8); Neutrophils % 72.5 % (37.0-80.0); Platelet Count 212 K/mm3 (142-424); Red Blood Count 4.87 M/mm3 (4.20-5.40); Red Cell Distribution Width 14.4 % (11.5-17.5); White Blood Count 6.7 K/mm3 (4.8-10.8)
--- NOTE | 2023-11-09 03:00 | PC.NURSE ---
Patient was transported to CT after stroke alert called [id number]
[2023-11-09 03:04] LABS: Chloride 101 mmol/L (98-107); Potassium 3.5 mmoL/L (3.5-5.1); Sodium 134 mmol/L (136-145)
[2023-11-09] MEDS: SODIUM CHLORIDE 0.9% 10ML SYR (RAD ONLY) 10 ML IV (03:04)
[2023-11-09] MEDS: IOPAMIDOL-370 (76%);100ML BOTTLE 100 ML IV (03:04)
[2023-11-09] MEDS: 0.9 % SODIUM CHLORIDE 50 ML VIAL IV (03:04)
--- NOTE | 2023-11-09 03:04 | XR_ITS ---
PROCEDURE INFORMATION: Exam: XR Right Femur Exam date and time: 11/09/2023 3:21 AM Age: 68 years old Clinical indication: Pain; Thigh; Right; Additional info: Pain ttp fall TECHNIQUE: Imaging protocol: Radiologic exam of the right femur. Views: 2 views. COMPARISON: No relevant prior studies available. FINDINGS: Limitations: Evaluation limited by patient body habitus. Bones/joints: No acute fracture or dislocation identified. Soft tissues: Unremarkable. IMPRESSION: 1. No acute fracture or dislocation identified. 2. If there is persistent concern for occult fracture, consider further evaluation with cross-sectional imaging.
[2023-11-09 03:07] LABS: Alanine Aminotransferase 19 U/L (12-78); Albumin Level 3.9 g/dl (3.5-5.0); Albumin/Globulin Ratio 1.2 (1.1-1.8); Alkaline Phosphatase 139 U/L (38-126); Anion Gap 5.5 mEq/L (5-15); Aspartate Amino Transferase 23 U/L (14-36); Bilirubin,Total 0.8 mg/dl (0.2-1.3); Blood Urea Nitrogen 23 mg/dl (7-17); Carbon Dioxide 31 mmol/L (22.0-30.0); Creatinine Clearance Estimated 63 mL/min (50-200); Estimated Glomerular Filt Rate 50 ml/min (>60); GFR (African American) 60 ML/MIN (>60); Globulin 3.3 g/dL (1.3-3.2); Total Protein,Serum 7.2 g/dl (6.3-8.2)
[2023-11-09] MEDS: LACTATED RINGERS 1000ML 1,000 ML 999 ML IV (03:07)
[2023-11-09 03:08] LABS: Calcium 9.5 mg/dl (8.4-10.2); Glucose 345 mg/dl (74-100)
--- NOTE | 2023-11-09 03:09 | PC.NURSE ---
Patient is back from CT
--- NOTE | 2023-11-09 03:09 | PC.NURSE ---
Attending speaking to VIS at at 0309 regarding scan
--- NOTE | 2023-11-09 03:11 | ECG_ITS ---
APPROVED REPORT Exam: Resting ECG HR:85 bpm ECG Measurements Heart Rate 85 AXES IN 202 P 92 QRSd 94 QRS 71 QT 408 T 73 QTc 450 Conclusion SINUS RHYTHM NORMAL ECG Electronically signed by : JAKE MEDINA, 11/09/2023 05:07:29
[2023-11-09 03:12] VITALS: BP 179/73; PULSE 87; RESP 20; O2SAT 96
--- NOTE | 2023-11-09 03:16 | PC.NURSE ---
patient put on bedpan, daughter at bedside
[2023-11-09 03:28] LABS: Appearance,Urine CLEAR (Clear); Bilirubin,Urine Negative (Negative); Blood, Urine Negative (Negative); Color,Urine YELLOW (Yellow); Glucose,Urine (UA) 3+ (Negative); Ketones,Urine TRACE (Negative); Leukocyte Esterase,Urine 1+ (Negative); Microscopic, Urine URINE MICROSCOPIC (MICROSCOPIC); Nitrate,Urine Negative (Negative); Protein,Urine Negative (Negative); Urobilinogen,Urine 0.2 EU/dl (0.2)
--- NOTE | 2023-11-09 03:30 | PC.NURSE ---
finger stick obtained at 0253 results 180, RN informed
[2023-11-09 03:34] LABS: Bacteria,Urine Trace /lpf
[2023-11-09] MEDS: ASPIRIN 300MG SUPPOSITORY 300 MG RC (03:35)
[2023-11-09 03:36] VITALS: BP 159/73; PULSE 86; RESP 20; TEMP 36.9; O2SAT 98
--- NOTE | 2023-11-09 03:47 | PC.NURSE ---
speaking dr buzz choudhary
--- NOTE | 2023-11-09 03:53 | PC.NURSE ---
ems present and receiving report from nicolle pino
--- NOTE | 2023-11-09 03:55 | PC.NURSE ---
EMS here for transport. VSS, NAD
--- NOTE | 2023-11-14 17:06 | PC.NURSE ---
urine culture results reviewed with , JOSLYN at this time
== END 2023-11-09 03:55 | disposition short-term general hospital (02) ==
PROVIDERS: Emergency Provider Emergency Medicine; PCP Physician Assistant
DX: I65.22 Occlusion and stenosis of left carotid artery (principal); B96.89 Other specified bacterial agents as the cause of diseases classified elsewhere; R53.1 Weakness; E11.9 Type 2 diabetes mellitus without complications; I10 Essential (primary) hypertension; Z79.84 Long term (current) use of oral hypoglycemic drugs; W19.XXXA Unspecified fall, initial encounter
CPT/HCPCS: 70450; 70496; 70498; 73552; 80053; 81001; 85025; 87086; 93005; 96360; 99291; Q9967

== ENCOUNTER 2023-12-15 20:57 | Emergency (ER) | payer OTHER, SELFPAY ==
[2023-12-15 21:12] VITALS: BP 176/70; PULSE 69; RESP 18; TEMP 36.5; O2SAT 98; BMI 34.2
--- NOTE | 2023-12-15 21:22 | HMH.EDGENADL ---
Discharge Plan Disposition Patient Disposition: Home, Self-Care Condition: Good Prescriptions Prescriptions: No Action Effer-K 20 mEq tablet, effervescent PO (DME) lancets [OneTouch Delica Plus Lancet] 33 gauge misc See Rx Instructions .ROUTE .MEDSUPPLY Qty: 100 Rx Instructions: As directed cholecalciferol (vitamin D3) 50 mcg (2,000 unit) tablet PO lidocaine [Lidocaine Pain Relief] 4 % adhesive patch,medicated topical clopidogrel 75 mg tablet PO hydrochlorothiazide 12.5 mg capsule PO polyethylene glycol 3350 17 gram/dose powder PO insulin lispro [Humalog KwikPen Insulin] 100 unit/mL insulin pen SQ (DME) pen needle, diabetic [BD Ultra-Fine Mini Pen Needle] 31 gauge x 3/16 needle See Rx Instructions .ROUTE .MEDSUPPLY Qty: 1200 Rx Instructions: As directed insulin glargine [Lantus Solostar U-100 Insulin] 100 unit/mL (3 mL) insulin pen SQ Deep Sea Nasal 0.65 % aerosol,spray intranasal Leqvio 284 mg/1.5 mL syringe 284 mg SQ [id number] Qty: 1.5 2RF ergocalciferol (vitamin D2) 1,250 mcg (50,000 unit) capsule 1,250 mcg PO WEEKLY Patient Comments: TAKE 1 CAPSULE BY MOUTH ONCE A WEEK albuterol sulfate [Ventolin HFA] 90 mcg/actuation HFA aerosol inhaler 2 inh INHALATION Q4-6H PRN (Reason: Shortness Of Breath Or Wheezing) Patient Comments: INHALE 2 PUFFS BY MOUTH EVERY 4 TO 6 HOURS NEEDED FOR SHORTNESS OF BREATH FOR WHEEZING . APPOINTMENT REQUIRED FOR FUTURE REFILLS Referrals Follow up/Referrals: Verenice Contreras PA [Primary Care Provider] - See instructions Activity Restrictions/Add. Instructions Additional Instructions/Restrictions: Please call and make a follow-up appointment with your PCP in 1 week for recheck of your labs and possible further testing for venous insufficiency of the lower extremities. Please call in the morning to inquire what is needed for your home health to get assistance with ambulation in the home. Return to ER for any worsening symptoms including pain redness swelling shortness of breath. Clinical Impressions Clinical Impression: Dependent edema Discharge ED Provider: Kathrine Robin General Adult HPI <MARTI Cardoso - Last Filed: 12/15/23 22:58> General Chief complaint: Extremity Problem,Nontraumatic Stated complaint: swelling in feet/calfs Time Seen by Provider: 12/15/23 21:22 History of Present Illness HPI narrative: Patient presents for evaluation of bilateral, right greater than left lower extremity swelling. Patient is approximately 1 month status post ischemic stroke leaving her with right-sided deficits. Patient was in for approximately 2 weeks in [facility] for tube approximately 2 weeks and has been home now for a week and a half. Patient is participating in outpatient physical therapy but has no home health services currently. Patient is unable to ambulate without assistance and is unable to arise from a seated position without assistance. He is patient has been sleeping in an adjustable chair as well as sitting in the adjustable chair the majority of her day. Patient reports over the last 3 days that her legs have continued to significantly be swollen however they are nontender to palpation. The right leg is worse than the left. She denies chest pain fever chills hemoptysis hematochezia melena nausea vomit diarrhea. Related Data Home Medications Medication Instructions Recorded Confirmed albuterol sulfate 90 mcg/actuation 2 inh inhalation Q4-6H PRN 11/09/23 12/11/23 aerosol inhaler (Ventolin HFA) Shortness Of Breath Or Wheezing ergocalciferol (vitamin D2) 1,250 1,250 mcg PO WEEKLY 11/09/23 12/11/23 mcg (50,000 unit) capsule cholecalciferol (vitamin D3) 50 PO 12/11/23 12/11/23 mcg (2,000 unit) tablet clopidogrel 75 mg tablet mg PO 12/11/23 12/11/23 hydrochlorothiazide 12.5 mg capsule mg PO 12/11/23 12/11/23 insulin glargine 100 unit/mL (3 unit SQ 12/11/23 12/11/23 mL) subcutaneous pen (Lantus Solostar U-100 Insulin) insulin lispro 100 unit/mL SQ 12/11/23 12/11/23 subcutaneous pen (Humalog KwikPen (U-100) Insulin) lancets 33 gauge (Chloe Warren #100 ea 12/11/23 12/11/23 Plus Lancet) lidocaine 4 % topical patch patch topical 12/11/23 12/11/23 (Lidocaine Pain Relief) pen needle, diabetic 31 gauge x #1,200 ea 12/11/23 12/11/23 3/16 (BD Ultra-Fine Mini Pen Needle) polyethylene glycol 3350 17 g PO 12/11/23 12/11/23 gram/dose oral powder potassium bicarbonate-citric acid PO 12/11/23 12/11/23 20 mEq effervescent tablet (Effer-K) sodium chloride 0.65 % nasal spray spray intranasal 12/11/23 12/11/23 aerosol (Deep Sea Nasal) Previous Rx's Medication Instructions Recorded inclisiran 284 mg/1.5 mL 284 mg (1.5 mL) SQ [id number] #1.5 mL 12/11/23 subcutaneous syringe (Leqvio) Allergies Allergy/AdvReac Type Severity Reaction Status Date / Time penicillin G Allergy Mild Hives Verified 12/15/23 21:24 Sulfa (Sulfonamide AdvReac Intermediate rash on Verified 12/15/23 21:24 Antibiotics) entire body PFS <MARTI Cardoso - Last Filed: 12/15/23 22:58> [facility] Disclaimer: The information contained in this section may have been updated after the patient was seen, as this information can be updated by other users. Medical History (Updated 12/15/23 @ 22:53 by MARTI Cardoso) High cholesterol Diabetes mellitus Vitamin D deficiency Depression Hypertension Social History Smoking Status: Never smoker alcohol intake: never substance use type: denies use current occupational status: retired Travel in the last 8 weeks: None <MARTI Cardoso - Last Filed: 12/15/23 22:58> ROS Obtained: Yes Systems reviewed as appropriate & no additional complaints except as documented Physical Exam <MARTI Cardoso - Last Filed: 12/15/23 22:58> General General appearance: alert and in no apparent distress Respiratory Respiratory exam: Present normal lung sounds bilaterally; Absent respiratory distress Cardiovascular Cardiovascular exam: Present regular rate, normal rhythm and normal heart sounds Extremities Exam Extremities exam: Present normal inspection, normal capillary refill and edema (Bilateral lower extremity pitting edema, right greater than left. No tenderness to palpation. No erythema or induration noted); Absent tenderness Back Exam Back exam: Present normal inspection and full ROM Neurological Exam Neurological exam: Present alert and oriented X3 Skin Skin exam: Present warm, dry and normal color Medical Decision Making <MARTI Cardoso - Last Filed: 12/15/23 22:58> Medical Records Medical records reviewed: Yes I reviewed the patient's medical records. Ki Inquiry Pt receiving controlled substance: No Vital Signs: 12/15/23 21:12 12/15/23 21:30 12/15/23 21:30 Temperature 97.7 F Temperature Source Oral Pulse Rate 68 Pulse Rate [Left] 69 Respiratory Rate 18 Blood Pressure 160/69 H 139/72 Blood Pressure [Right Arm] 176/70 H Blood Pressure Mean 108 Blood Pressure Mean [Right Arm] 105 Blood Pressure Source [Right Arm] Automatic Cuff Blood Pressure Position [Right Arm] Sitting 02 Sat by Pulse Oximetry 98 98 Oxygen Delivery Method Room Air 12/15/23 22:00 12/15/23 22:30 Temperature Temperature Source Pulse Rate 67 Pulse Rate [Left] Respiratory Rate Blood Pressure 139/72 Blood Pressure [Right Arm] Blood Pressure Mean 94 Blood Pressure Mean [Right Arm] Blood Pressure Source [Right Arm] Blood Pressure Position [Right Arm] 02 Sat by Pulse Oximetry 100 Oxygen Delivery Method Lab Data Lab results reviewed: Yes I reviewed the patient's lab results. Lab Results 12/15/23 22:18: WBC 6.1, RBC 4.53, Hgb 13.0, Hct 38.0, MCV 84.0, MCH 28.7, MCHC 34.1, RDW 15.6, Plt Count 281, MPV 8.3, Neut % (Auto) 63.3, Lymph % (Auto) 23.8, [place] % (Auto) 8.5, Eos % (Auto) 3.5, Baso % (Auto) 0.9, Neut # (Auto) 3.8, Lymph # (Auto) 1.4, [place] # (Auto) 0.5, Eos # (Auto) 0.2, Baso # (Auto) 0.1, D-Dimer < 0.25, Sodium 139, Potassium 3.3 L, Chloride 105, Carbon Dioxide 27, Anion Gap 10.3, BUN 20 H, Creatinine 1.00, Estimated Creat Clear 75, Estimated GFR 55 L, Est GFR ( Amer) 67, Glucose 162 H, Calcium 9.9, Total Bilirubin 0.6, AST 28, ALT 28, Alkaline Phosphatase 126, Total Protein 7.5, Albumin 3.9, Globulin 3.6 H, Albumin/Globulin Ratio 1.1 12/15/23 22:18 12/15/23 22:18 Orders (Tests/Meds): ORDERS Category Date Time Status CBC w/Auto Diff [Complete Blood Count Auto Diff] Stat Lab 12/15/23 22:18 Completed CMP [Comprehensive Metabolic Panel] Stat Lab 12/15/23 22:18 Completed D-Dimer Stat Lab 12/15/23 22:18 Completed Medical Decision Narrative: In summary patient is a 68-year-old female who presents to the emergency department for evaluation of lower extremity edema. Patient is slightly hypertensive with a blood pressure 176/70 heart rate of 69 respiratory rate is 18 sats 98% on room air upon arrival, febrile. Physical exam is remarkable for right-sided muscular deficits including slight facial droop and slight muscle tone loss in the upper and lower extremity. Patient is unable to ambulate without specialized walker and assistance patient has pitting edema right greater than left in the lower extremities without tenderness to palpation. Patient is neurovascularly intact distally however.. Differential diagnosis includes dependent edema, lack of muscle tone, DVT, renal failure etc. Initial workup will be conducted with hematologic labs. Initial workup reviewed by me shows that her hematologic labs are nonactionable including an undetectable D-dimer. Upon repeat evaluation I had an interactive discussion with the patient who is agreeable to close follow-up with her PCP and calling home health in the morning to inquire as to her home services. Given this patient is appropriate for discharge with follow-up with her PCP within 1 week for reevaluation of her lower extremity edema. <Kathrine Robin MD - Last Filed: 12/15/23 23:04> Vital Signs: 12/15/23 21:12 12/15/23 21:30 12/15/23 21:30 Temperature 97.7 F Temperature Source Oral Pulse Rate 68 Pulse Rate [Left] 69 Respiratory Rate 18 Blood Pressure 160/69 H 139/72 Blood Pressure [Right Arm] 176/70 H Blood Pressure Mean 108 Blood Pressure Mean [Right Arm] 105 Blood Pressure Source [Right Arm] Automatic Cuff Blood Pressure Position [Right Arm] Sitting 02 Sat by Pulse Oximetry 98 98 Oxygen Delivery Method Room Air 12/15/23 22:00 12/15/23 22:30 Temperature Temperature Source Pulse Rate 67 Pulse Rate [Left] Respiratory Rate Blood Pressure 139/72 Blood Pressure [Right Arm] Blood Pressure Mean 94 Blood Pressure Mean [Right Arm] Blood Pressure Source [Right Arm] Blood Pressure Position [Right Arm] 02 Sat by Pulse Oximetry 100 Oxygen Delivery Method Lab Data Lab Results 12/15/23 22:18: WBC 6.1, RBC 4.53, Hgb 13.0, Hct 38.0, MCV 84.0, MCH 28.7, MCHC 34.1, RDW 15.6, Plt Count 281, MPV 8.3, Neut % (Auto) 63.3, Lymph % (Auto) 23.8, [place] % (Auto) 8.5, Eos % (Auto) 3.5, Baso % (Auto) 0.9, Neut # (Auto) 3.8, Lymph # (Auto) 1.4, [place] # (Auto) 0.5, Eos # (Auto) 0.2, Baso # (Auto) 0.1, D-Dimer < 0.25, Sodium 139, Potassium 3.3 L, Chloride 105, Carbon Dioxide 27, Anion Gap 10.3, BUN 20 H, Creatinine 1.00, Estimated Creat Clear 75, Estimated GFR 55 L, Est GFR ( Amer) 67, Glucose 162 H, Calcium 9.9, Total Bilirubin 0.6, AST 28, ALT 28, Alkaline Phosphatase 126, Total Protein 7.5, Albumin 3.9, Globulin 3.6 H, Albumin/Globulin Ratio 1.1 Orders (Tests/Meds): ORDERS Category Date Time Status CBC w/Auto Diff [Complete Blood Count Auto Diff] Stat Lab 12/15/23 22:18 Completed CMP [Comprehensive Metabolic Panel] Stat Lab 12/15/23 22:18 Completed D-Dimer Stat Lab 12/15/23 22:18 Completed Medical Decision Narrative: In summary patient is a 68-year-old female who presents to the emergency department for evaluation of lower extremity edema. Patient is slightly hypertensive with a blood pressure 176/70 heart rate of 69 respiratory rate is 18 sats 98% on room air upon arrival, febrile. Physical exam is remarkable for right-sided muscular deficits including slight facial droop and slight muscle tone loss in the upper and lower extremity. Patient is unable to ambulate without specialized walker and assistance patient has pitting edema right greater than left in the lower extremities without tenderness to palpation. Patient is neurovascularly intact distally however.. Differential diagnosis includes dependent edema, lack of muscle tone, DVT, renal failure etc. Initial workup will be conducted with hematologic labs. Initial workup reviewed by me shows that her hematologic labs are nonactionable including an undetectable D-dimer. Upon repeat evaluation I had an interactive discussion with the patient who is agreeable to close follow-up with her PCP and calling home health in the morning to inquire as to her home services. Given this patient is appropriate for discharge with follow-up with her PCP within 1 week for reevaluation of her lower extremity edema. Kathrine Robin MD: Attestation: I was consulted by the BRIANDA and we discussed the complexity of the problems being addressed. I approved the treatment and management plan for this patient's care in the emergency department, thus performing a substantive portion of the medical decision making. Critical Care <MARTI Cardoso - Last Filed: 12/15/23 22:58> Critical Care Time Critical Care Time: No
[2023-12-15 21:30] VITALS: BP 139/72; BP 160/69; PULSE 68; O2SAT 98
[2023-12-15 22:00] VITALS: PULSE 67; O2SAT 100
[2023-12-15 22:28] LABS: Basophils # 0.1 K/mm3 (0-0.2); Basophils % 0.9 % (0.1-2.0); Eosinophils # 0.2 K/mm3 (0.0-0.4); Eosinophils % 3.5 % (0.1-12.0); Lymphocytes # 1.4 K/mm3 (0.7-4.5); Lymphocytes % 23.8 % (10-50); Mean Corpuscular HGB Conc 34.1 g/dL (31.8-35.4); Mean Corpuscular Hemoglobin 28.7 pg (27.0-31.2); Mean Platelet Volume 8.3 fl (7.4-10.4); Monocytes # 0.5 K/mm3 (0.1-1.0); Monocytes % 8.5 % (1.7-9.3); Neutrophils # 3.8 K/mm3 (1.8-7.8); Neutrophils % 63.3 % (37.0-80.0); Platelet Count 281 K/mm3 (142-424); Red Blood Count 4.53 M/mm3 (4.20-5.40); Red Cell Distribution Width 15.6 % (11.5-17.5); White Blood Count 6.1 K/mm3 (4.8-10.8)
[2023-12-15 22:30] VITALS: BP 139/72
[2023-12-15 22:35] LABS: Alanine Aminotransferase 28 U/L (12-78); Albumin Level 3.9 g/dl (3.5-5.0); Albumin/Globulin Ratio 1.1 (1.1-1.8); Alkaline Phosphatase 126 U/L (38-126); Anion Gap 10.3 mEq/L (5-15); Aspartate Amino Transferase 28 U/L (14-36); Bilirubin,Total 0.6 mg/dl (0.2-1.3); Blood Urea Nitrogen 20 mg/dl (7-17); Calcium 9.9 mg/dl (8.4-10.2); Carbon Dioxide 27 mmol/L (22.0-30.0); Chloride 105 mmol/L (98-107); Creatinine Clearance Estimated 75 mL/min (50-200); Estimated Glomerular Filt Rate 55 ml/min (>60); GFR (African American) 67 ML/MIN (>60); Globulin 3.6 g/dL (1.3-3.2); Glucose 162 mg/dl (74-100); Potassium 3.3 mmoL/L (3.5-5.1); Sodium 139 mmol/L (136-145); Total Protein,Serum 7.5 g/dl (6.3-8.2)
[2023-12-15 22:39] LABS: D-Dimer < 0.25 ug/mL (0.0-0.5)
[2023-12-15 23:01] VITALS: BP 142/65; PULSE 65; RESP 16; TEMP 36.8; O2SAT 98
== END 2023-12-15 23:05 | disposition home or self-care (01) ==
PROVIDERS: Physician Assistant; Emergency Provider Emergency Medicine; PCP Physician Assistant
DX: R60.0 Localized edema (principal); E87.6 Hypokalemia; E11.9 Type 2 diabetes mellitus without complications; I10 Essential (primary) hypertension; E78.5 Hyperlipidemia, unspecified; Z79.4 Long term (current) use of insulin
CPT/HCPCS: 80053; 85025; 85378; 99283

== ENCOUNTER 2024-01-29 14:00 | Outpatient (RCR) | payer OTHER, SELFPAY ==
--- NOTE | 2023-12-20 09:05 | HMH.PTOPEV ---
PT Outpatient Evaluation Rehab PT Outpatient Evaluation Start: 12/19/23 10:05 Freq: Status: Active Protocol: Document 12/19/23 13:04 KATHI (Rec: 12/19/23 13:52 KATHI [email or web address]) E-signed By Laly Cornelius, PT Outpatient Therapy Subjective History Subjective History This is an inital evaluation for 68 y/o female, Racquel Brush , who presents s/p L atkins radiata CVA. Pt was admitted to on 11/09/23 and discharged to [facility] for rehabilitation. Pt was discharged from [facility] ~2 weeks ago and has been at home with family assistance since. Pt is currently using w/c as her primary mode of mobility. Pt requires her family's assistance at home for all transfers, bed mobility, gait, and ADLs. Pt reports she hasn 't ambulated since she was in rehab and has not recieved PT services. Pt states her knee pain is her primary limiting factor with standing. Pt does not own an AD. Pt has a lift chair and hospital bed . PLOF: IND before stroke with some falls. Driving prior. New diagnosis of cancer in past 12 No months? Prior Functional Limitations None Current Functional Limitations Reaching,Lifting,Housework, Dressing,Driving,Standing, Sitting,Squatting,Recreation Activity,Walking,Balance, Bending/Stooping Hip/Knee Eval MMT right Hip Flexion Strength Grade 2+ Poor+ Hip Abduction Strength Grade 2+ Poor+ Hip Adduction Strength Grade 2+ Poor+ Hip Extension Strength Grade 2+ Poor+ Hip External Rotation Strength Grade 2+ Poor+ Hip Internal Rotation Strength Grade 2+ Poor+ Knee Extension Strength Grade 2+ Poor+ Knee Flexion Strength Grade 3- Fair- Balance Eval [place] Feet Together/Eyes open/Stable Surface fail Feet Together/Eyes Closed/Stable Surface fail Feet Together/Eyes open/Unstable Surface fail Feet Together/Eyes Closed/Unstable fail Surface BAUTISTA Balance Evaluation Sitting to Standing Ability Moderate/Maximum Assist Unsupported Stance Unable w/out Assistance Sitting Unsupported, Feet on Floor Unable w/o assistance Standing to Sitting Ability Requires Assistance Transfer Ability Assistance- 2 person Unsupported Stance- Eyes Closed Falls Without Assistance Unsupported Stance- Eyes Open Assist to attain,<15 secs Reaching Forward Standing Supported, Looses Balance Pick- Up Object From Floor Requires Assistance Look Behind Shoulder - Standing Assist to Prevent Fall Turning 360 Degrees Requires Assistance Unsupported Stance, Alternating Feet on Assist to Prevent Fall Stair Unsupported Tandem Stance Balance Lost- Step/Stand Unilateral Leg Stance Unable,assist to not fall Total Score Balance Evaluation Total (out of 56 0 points) Miscellaneous Dx PT Eval Objective Objective RLE sensation intact to light touch. RLE joint proprioception intact. Bed mobility: - Supine >sit: min A x 1 - Sit>supine: min A x 1 - Rolling: min A x 1 Chair<>w/c: Mod A x 2 Ambulating: w/c follow. Mod A x 2 R knee blocked. Miscellaneous Goals Short Term Goals In 4 weeks, pt will: 1) Perform 5 STS transitions with at most Min A x 1 for safety 2) Ambulate 15' with walt- walker, mod A, and w/c follow 3) Perform Supine <>sitting with SUP 4) Propel manual w/c 30' using LUE and BLE. 5) Improve RLE MMT by half a grade [employer] Goals In 12 weeks, pt will: 1) Progress through higher level standing balance challenges. 2) Improve RLE MMT to 4+/5 to improve functional strength 3) Demo IND bed mobility 4) Tolerate 5 minutes of dynamic standing with assistance as needed. 5) Ambulate 35' using Walt- walker and Mod A for safety Outpatient Therapy Assessment Impairments Problems/Impairmments Impaired Range of Motion, Impaired Strength,Impaired Endurance,Impaired Transfers, Impaired Gait Pattern,Impaired Walking,Impaired Standing, Impaired Lifting,Impaired Shower/Bathing,Impaired Household Care,Impaired Stair Climbing,Impaired Stepping on Uneven Surface,Impaired Squatting,Impaired Recreational Activities, Impaired Balance,Impaired BAUTISTA Score,Impaired Self Care/Self Management Prognosis Rehab Potential Good Clinical Impression Consistent with Diagnosis Yes Consistent with CVA Outpatient Therapy Plan of Care Treatment Plan May Include Therapeutic Exercise Including Home Yes Exercise Program Neuromuscular Re-education Yes Therapeutic Activities to Return to Yes Previous Functional/Work Level Gait Training Yes ADL/Self Care Education Yes Thermal Modalities Yes Electrical Stimulation Yes Eval/Re-Eval Yes Frequency Times per week 2x a week Duration Number of Weeks 12 Addendums This patient is a candidate for social No or vocational rehab? Patient/Guardian verbally acknowledges Yes understanding of treatment program and consents to further treatment? Patient/Guardian verbally acknowledges Yes understanding of diagnosis, prognosis and goals for treatment? Eval Complexity PT Charges 17557 - Moderate Complexity Shoulder/Elbow Eval Shoulder Objective Measurements Elbow Objective Measurements PHYSICIAN CERTIFICATION: I certify the specified therapy services for Racquel Brush are required, authorized, and reviewed every 30 days.
--- NOTE | 2024-01-23 12:42 | HMH.RHREAS ---
Rehab Reassessment Rehab OP Re-assessment Start: 12/19/23 10:05 Freq: Status: Active Protocol: Document 01/23/24 10:05 KATHI (Rec: 01/23/24 10:53 KATHI [email or web address]) E-signed By Laly Cornelius, PT BAUTISTA Balance Evaluation Sitting to Standing Ability Moderate/Maximum Assist Unsupported Stance Unable w/out Assistance Sitting Unsupported, Feet on Floor Unable w/o assistance Standing to Sitting Ability Requires Assistance Transfer Ability Assistance- 2 person Unsupported Stance- Eyes Closed Falls Without Assistance Unsupported Stance- Eyes Open Assist to attain,<15 secs Reaching Forward Standing Supported, Looses Balance Pick- Up Object From Floor Requires Assistance Look Behind Shoulder - Standing Assist to Prevent Fall Turning 360 Degrees Requires Assistance Unsupported Stance, Alternating Feet on Assist to Prevent Fall Stair Unsupported Tandem Stance Balance Lost- Step/Stand Unilateral Leg Stance Unable,assist to not fall Total Score Balance Evaluation Total (out of 56 0 points) Rehab Re-assessment Subjective Subjective Pt reports she feels 20% better since initial evaluation. Pt reports she has found improvement with functional mobility d/t improved technique with transfers and toileting tasks. Pt reports she has been able to propel her manual w/c around short house hold distances. Pt reports she has been doing well with car transfers now (one person assist). Objective Objective Notes MMT: RLE hip flexion: 3/5 RLE hip ABD: 3/5 RLE hip ADD: 3/5 RLE knee extension: 2+/5 RLE: knee flexion: 3/5 RLE sensation intact to light touch. RLE joint proprioception intact. Bed mobility: - Supine >sit: min A x 1 - Sit>supine: min A x 1 - Rolling: min A x 1 Chair<>w/c: min A x 1 Ambulating: Unable d/t significant R knee pain upon WBing Assessment Progress Assessment Slower Than Expected Assessment Notes This is a reassessment for Racquel Brush who presents to PT for c/o weakness and impaired mobility s/p stroke. Since IE , pt has been seen for 5 visits that have consisted of education, NMR, and therapeutic exercises focusing on strengthening for functional mobility. Pt with fair+ attendance to scheduled PT visits and reports adherence to HEP. Since IE, pt with improvements in transfers, w/c mobility, and standing. Pt still presents with impaired gait, strength, endurance, and functional mobility. Pt's primary limitation with achieving her standing and ambulation goals is signifcant R knee pain with weightbearing. Pt reports ortho will be giving her an injection soon. Pt would continue to benefit from skilled outpatient physical therapy to address remaining deficits. Patient goals met STGs: 1) Perform 5 STS transitions with at most Min A x 1 for safety; MET 2) Ambulate 15' with jaqueline- walker, mod A, and w/c follow; NOT MET 3) Perform Supine <>sitting with SUP; DISCONTINUE (Pt does not use a bed) 4) Propel manual w/c 30' using LUE and BLE; MET 5) Improve RLE MMT by half a grade; NOT MET Plan Plan Continue POC 2x per week for 4 weeks Frequency of Therapy 2x a week Duration of therapy 4 weeks Time and Billing Re-Eval Time 10 Re-Eval Billing Units 1 PHYSICIAN CERTIFICATION: I certify the specified therapy services for Racquel Brush are required, authorized, and reviewed every 30 days.
== END 2024-01-29 15:20 | disposition home or self-care (01) ==
LOC: PT 14:00
PROVIDERS: Visit Provider Physician Assistant
DX: I63.9 Cerebral infarction, unspecified (principal)
CPT/HCPCS: 97110; 97112; 97163; 97164; 97535

== ENCOUNTER 2024-03-05 13:00 | Outpatient (RCR) | payer OTHER, SELFPAY ==
--- NOTE | 2023-12-25 11:03 | HMH.SLAPHASI ---
Speech & Language Evaluation Speech/Language Aphasia Evaluation Start: 12/25/23 10:51 Freq: once Status: Complete Protocol: Document 12/25/23 10:51 CHERISELAMINE (Rec: 12/25/23 11:02 GRISEL [id number]) Aphasia Assessment/Goals/Plan Assessment Date of Evaluation: 12/25/23 Evaluation Type Initial Certification Assessment/Problems CVA per MD order. Does Patient Qualify for Service Yes Qualify/Failure Comment Based on clinical observations made throughout motor speech and cognitive linguistic assessments, Racquel Brush would benefit from skilled speech therapy services 1-2x/week to address dysarthria and right sided weakness, as well as cognitive linguistic deficits. Plan Pt will be seen # times/week 2 for # weeks 12 Anticipate reaching STG in # weeks 8 Anticipate reaching LTG in # weeks 12 Pt/Guardian verbally ack understanding Yes of dx/prognosis/goals G -code Required No STG-Auditory Comprehension Paragraph Level 90 STG-Verbal Expressive Language Word Naming 90 Define Words 90 STG-Attending/Orientation/Memory Delayed Recall 90 STG-Comparative/Linguistic Skills Thought Organization 90 Categorization Ability 90 STG-Divergent Thinking Deductive Reasoning 90 STG-Intell/Buccal/Labial Strength Intelligibility 90 #Intelligibility Drills Performed/Sesson 10 Labial Strength 90 # Times Exercises Perf/Session 10 Buccal Strength 90 # Times Exercises Perf/Session 10 Ring Barker Operator Goals Increase oral motor tone to improve Yes: 90 intelligibility. Increase cognitive skills to communicate Yes: 90 w/family & friends Education Instructions provided Discussed preliminary assessment results and POC with pt who expressed understanding. Pt/Caregiver Able to Recall Information Able to recall/restate Reinforcement needed No Speech & Language HPI History Present Illness Description of Patient Problem Pt is a pleasant 68 year old female presenting at [facility] Outpatient Rehab Services for a speech therapy evaluation. PMHx of T2DM and HTN who presented to [facility] as a transfer from OSH on 11/09/23 due to : atkins radiata CVA 2/ 2/ L ICA stenosis. Pt had experienced 2 days of RUE and RLE weakness; this worsened and daughter noticed a R facial droop on 11/07, which prompted her to call EMS. Pt was then taken to OSH where was found to have a L atkins radiata CVA 2/2 L ICA stenosis so she was transferred to [facility] for further management. NIHSS on admission to [facility] on 11/08 was a 4. Upon evaluation at [facility] Rehab services, pt was emotional stating she was worried she was never going to get better. Pt reported previously being a very independent person and is having a hard time adjusting to requiring assistance. Rehab Services Assessed Speech therapy Is this evaluation r/t stroke? Yes Aphasia Evaluations Communication Speech Intelligibility Mild to moderate dysarthria 2' right sided facial droop. Auditory Comprehension Yes: Word Level Sentences Following Directions Conversation No: Paragraph AC Comment Difficulty with recalling information in longer paragraphs. Reading Comprehension Yes: Letter Naming Word Naming Sentences Paragraphs RC Comment When able to review text independently, pt is able to recall information that she had previously read. However, without visual stimulant from paragraphs, she is noted to have difficulty recalling infromation. Verbal Expressive Language Yes: Automatic Speech Completing Sentences Repetition Abilities Word Level Naming Naming Actions/Objects Sentence Level Defining Words ANTHONY Comment = WL Comment 2' right sided weakness, pt is required to use nondominant hand. Attending/Orientation/Memory Yes: Orientation Attention/Concentration No: Delayed Recall W/ Interference Memory AOM Comment Delayed recall and working memory appear to be a primary concern and deficit area for pt. Congnitive/Linguistic Skills No: Thought Organization Categorization Additional Evaluation(s) Additional Tests [place] Cognitivve Examination was administered. Scores were as follows. STAN Total: 86/100 Attention: Memory Fluency 05/02 Language Visuospatial:08/03 PHYSICIAN CERTIFICATION: I certify the specified therapy services for Racquel Brush are required, authorized, and reviewed every 30 days.
== END 2024-03-05 14:00 | disposition home or self-care (01) ==
LOC: ST 13:00
PROVIDERS: Visit Provider Physical Medicine & Rehabilitation
DX: I69.918 Other symptoms and signs involving cognitive functions following unspecified cerebrovascular disease (principal)
CPT/HCPCS: 92507; 92523; 97129; 97130

== ENCOUNTER 2024-03-05 14:00 | Outpatient (RCR) | payer OTHER, SELFPAY | END 2024-03-05 15:00 | disposition home or self-care (01) | LOC: OT 14:00 | PROVIDERS: Visit Provider Physical Medicine & Rehabilitation | DX: I63.81 Other cerebral infarction due to occlusion or stenosis of small artery (principal) | CPT/HCPCS: 97014; 97110; 97140; 97164; 97167; 97530; G0283 ==

== ENCOUNTER 2024-04-04 19:17 | Emergency (ER) | payer OTHER, SELFPAY ==
[2024-04-04 19:19] VITALS: BP 143/83; PULSE 76; RESP 16; TEMP 36.7; O2SAT 97; BMI 30.1
--- NOTE | 2024-04-04 20:22 | ED_ITS ---
Discharge Plan Disposition Patient Disposition: Home, Self-Care Condition: Good Prescriptions Prescriptions: New acyclovir 200 mg capsule 800 mg PO 5XDAY 7 Days Qty: 140 0RF Rx Instructions: while awake; give 5 doses in 24 hours No Action Effer-K 20 mEq tablet, effervescent See Rx Instructions .ROUTE .COMPLEX Rx Instructions: RX (DME) lancets [OneTouch Delica Plus Lancet] 33 gauge misc See Rx Instructions .ROUTE .MEDSUPPLY Qty: 100 Rx Instructions: As directed polyethylene glycol 3350 17 gram/dose powder See Rx Instructions .ROUTE .COMPLEX Rx Instructions: rx Deep Sea Nasal 0.65 % aerosol,spray See Rx Instructions .ROUTE .COMPLEX Rx Instructions: rx Leqvio 284 mg/1.5 mL syringe 284 mg SQ [id number] Qty: 1.5 2RF pantoprazole 40 mg tablet,delayed release (DR/EC) 40 mg PO DAILY Qty: 90 1RF furosemide [Lasix] 20 mg tablet 20 mg PO DAILY PRN (Reason: edema) Qty: 30 0RF (DME) Dexcom G7 Review Appraiser Misc See Rx Instructions .Route Qty: 1 0RF Rx Instructions: As directed (DME) Dexcom G7 Sensor Device See Rx Instructions .Route Qty: 4 5RF Rx Instructions: As directed cholecalciferol (vitamin D3) 50 mcg (2,000 unit) tablet 2,000 unit PO DAILY Qty: 90 3RF clopidogrel 75 mg tablet 75 mg PO DAILY Qty: 90 0RF hydrochlorothiazide 12.5 mg capsule 12.5 mg PO DAILY Qty: 90 0RF insulin glargine [Lantus Solostar U-100 Insulin] 100 unit/mL (3 mL) insulin pen 14 unit SQ DAILY 90 Days Qty: 15 3RF insulin lispro [Humalog KwikPen Insulin] 100 unit/mL insulin pen 6 unit SQ TID 90 Days Qty: 18 3RF (DME) pen needle, diabetic [BD Ultra-Fine Mini Pen Needle] 31 gauge x 3/16 needle See Rx Instructions .ROUTE .MEDSUPPLY Qty: 100 12RF Rx Instructions: As directed albuterol sulfate [Ventolin HFA] 90 mcg/actuation HFA aerosol inhaler 2 inh INHALATION Q4-6H PRN (Reason: Shortness Of Breath Or Wheezing) Patient Comments: INHALE 2 PUFFS BY MOUTH EVERY 4 TO 6 HOURS NEEDED FOR SHORTNESS OF BREATH FOR WHEEZING . APPOINTMENT REQUIRED FOR FUTURE REFILLS Referrals Follow up/Referrals: Verenice Contreras PA [Primary Care Provider] - See instructions Clinical Impressions Clinical Impression: Shingles Instructions Patient Instructions: DI for Skin Abscess Print Language Print Language: Vietnamese Discharge ED Provider: Ross Wang General Adult HPI General Chief complaint: Skin/Abscess/Foreign Body Stated complaint: Blisters left middle back Time Seen by Provider: 04/04/24 19:43 Mode of Arrival: Wheelchair Source of Information: Patient and Relative Limitations: Physical Limitations Description of Symptoms (Recalled from ER Triage Doc. by RN): Pt presents to ED for back pain/rash/blisters. Pt states pain started on Saturday, blisters presented on Sat., pain has become unbearable. Pt had a stroke 10/2023 and has R sided deficits. Pt is in a wheelchair at all times. Pt is A&O*4 and family is bedside. History of Present Illness HPI narrative: 68 yoF patient presents with a chief complaint of a rash, which she suspects to be shingles. She reports that she first experienced pain in her stomach, left side, and across her back on Saturday, initially attributing it to a backache. She used a heating pad for relief. On Saturday, she noticed the rash and her granddaughter reportedly identified it as shingles. The rash has since worsened. The patient denies any eye pain, nose, or ear issues. The patient has a past medical history of a stroke four months ago, which affected her right side. She is currently on blood thinners and reports no issues or injuries related to them. She has been managing her pain with ib uprofen Related Data Home Medications ?Medication ?Instructions ?Recorded ?Confirmed albuterol sulfate 90 mcg/actuation 2 inh inhalation Q4-6H PRN 11/09/23 01/09/24 aerosol inhaler (Ventolin HFA) Shortness Of Breath Or Wheezing lancets 33 gauge (OneTouch Delica #100 ea 12/11/23 01/09/24 Plus Lancet) polyethylene glycol 3350 17 See Rx Instructions .Route .COMPLEX 12/11/23 04/04/24 gram/dose oral powder potassium bicarbonate-citric acid See Rx Instructions .Route .COMPLEX 12/11/23 04/04/24 20 mEq effervescent tablet (Effer-K) sodium chloride 0.65 % nasal spray See Rx Instructions .Route .COMPLEX 12/11/23 04/04/24 aerosol (Deep Sea Nasal) Previous Rx's ?Medication ?Instructions ?Recorded inclisiran 284 mg/1.5 mL 284 mg (1.5 mL) SQ [id number] #1.5 mL 12/11/23 subcutaneous syringe (Leqvio) blood-glucose meter,continuous #1 ea 01/09/24 (Dexcom G7 Review Appraiser) furosemide 20 mg tablet (Lasix) 20 mg PO DAILY PRN edema #30 tabs 01/09/24 pantoprazole 40 mg tablet,delayed 40 mg PO DAILY #90 tabs 01/09/24 release blood-glucose sensor (Dexcom G7 #4 ea 01/31/24 Sensor device) cholecalciferol (vitamin D3) 50 2,000 unit PO DAILY #90 tabs 02/03/24 mcg (2,000 unit) tablet clopidogrel 75 mg tablet 75 mg PO DAILY Blood thinner #90 02/03/24 tabs hydrochlorothiazide 12.5 mg capsule 12.5 mg PO DAILY BP #90 caps 02/03/24 insulin glargine 100 unit/mL (3 14 unit (0.14 mL) SQ DAILY 90 days 02/18/24 mL) subcutaneous pen (Lantus #15 mL Solostar U-100 Insulin) insulin lispro 100 unit/mL 6 unit (0.06 mL) SQ TID 90 days 02/18/24 subcutaneous pen (Humalog KwikPen #18 mL (U-100) Insulin) pen needle, diabetic 31 gauge x #100 ea 02/25/24 3/16 (BD Ultra-Fine Mini Pen Needle) acyclovir 200 mg capsule 800 mg (4 x 200 mg) PO 5XDAY 7 04/04/24 days #140 caps Allergies Allergy/AdvReac Type Severity Reaction Status Date / Time penicillin G Allergy Mild Hives Verified 01/09/24 13:01 Sulfa (Sulfonamide AdvReac Intermediate rash on Verified 01/09/24 13:01 Antibiotics) entire body PFSH [facility] Disclaimer: The information contained in this section may have been updated after the patient was seen, as this information can be updated by other users. Medical History High cholesterol Diabetes mellitus Vitamin D deficiency Depression Hypertension Social History Smoking Status: Unknown if ever smoked alcohol intake: never substance use type: denies use current occupational status: retired Travel in the last 8 weeks: None ROS Obtained: Yes Systems reviewed as appropriate & no additional complaints except as documented Physical Exam General General appearance: alert and in no apparent distress Head Head exam: atraumatic and normocephalic Eye Eye exam: Present normal appearance and EOMI ENT ENT exam: Present normal exam and other (No findings consistent with [place] Brush or herpes zoster ophthalmicus) Neck Neck exam: Present normal inspection and full ROM Chest Chest inspection: Present normal inspection and symmetric chest wall rise; Absent tenderness Respiratory Respiratory exam: Present normal lung sounds bilaterally; Absent respiratory distress Cardiovascular Cardiovascular exam: Present regular rate, normal rhythm and normal heart sounds Abdominal Exam Abdominal exam: Present soft and normal bowel sounds; Absent distention or tenderness Extremities Exam Extremities exam: Present normal inspection and full ROM; Absent tenderness Back Exam Back exam: Absent normal inspection (Rash as below) Neurological Exam Neurological exam: Present alert and oriented X3 Psychiatric Psychiatric exam: Present normal affect and normal mood Skin Skin exam: Present warm, dry, intact and rash (Left-sided dermatomal rash at location T10, consistent with shingles, erythematous) Medical Decision Making Medical Records Medical records reviewed: Yes I reviewed the patient's medical records. Ki Inquiry Pt receiving controlled substance: No Vital Signs: 04/04/24 19:19 04/04/24 20:26 Temperature 98.0 F 98.3 F Temperature Source Oral Oral Pulse Rate 71 Pulse Rate [Left] 76 Respiratory Rate 16 16 Blood Pressure 139/63 Blood Pressure [Right Radial Artery] 143/83 H Blood Pressure Mean [Right Radial Artery] 103 02 Sat by Pulse Oximetry 97 Oxygen Delivery Method Room Air Room Air Medical Decision Narrative: Patient with history and exam per above presenting for evaluation of left-sided rash Diagnoses considered include shingles, dermatitis, erythema multiforme ED workup and treatment deferred given clinical diagnosis of shingles upon evaluation My clinical impression at this time is most consistent with shingles without findings of herpes zoster ophthalmicus or oticus. Patient prescribed acyclovir. I discussed my clinical impression with patient and answered all questions. At this time, the evidence for any other entities in the differential is insufficient to warrant any further testing or ED observation. This was explained to the patient. The patient was advised that persistent or worsening symptoms require further evaluation. Critical Care Critical Care Time Critical Care Time: No
[2024-04-04 20:26] VITALS: BP 139/63; PULSE 71; RESP 16; TEMP 36.8; O2SAT 98
== END 2024-04-04 20:33 | disposition home or self-care (01) ==
PROVIDERS: Emergency Provider Student in an Organized Health Care Education/Training Program; PCP Physician Assistant
DX: B02.9 Zoster without complications (principal)
CPT/HCPCS: 99283

== ENCOUNTER 2024-05-21 04:28 | Emergency (ER) | payer MEDICARE, OTHER, SELFPAY ==
--- NOTE | 2024-05-21 04:28 | PC.NURSE ---
Dr. Dillon and staff at bedside.
[2024-05-21 04:35] VITALS: BP 165/77; PULSE 74; RESP 18; TEMP 36.5; O2SAT 100; BMI 30.1
--- NOTE | 2024-05-21 04:37 | ED_ITS ---
Discharge Plan Disposition Patient Disposition: Left Against Medical Advice Condition: Fair Prescriptions Prescriptions: No Action clopidogrel 75 mg tablet See Rx Instructions .ROUTE .COMPLEX Qty: 90 0RF Dose Instruction: TAKE 1 TABLET BY MOUTH ONCE DAILY FOR BLOOD THINNER Rx Instructions: TAKE 1 TABLET BY MOUTH ONCE DAILY FOR BLOOD THINNER hydrochlorothiazide 12.5 mg capsule See Rx Instructions .ROUTE .COMPLEX Qty: 90 0RF Dose Instruction: TAKE 1 CAPSULE BY MOUTH ONCE DAILY FOR BLOOD PRESSURE Rx Instructions: TAKE 1 CAPSULE BY MOUTH ONCE DAILY FOR BLOOD PRESSURE (DME) lancets [OneTouch Delica Plus Lancet] 33 gauge misc See Rx Instructions .ROUTE .MEDSUPPLY Qty: 100 Rx Instructions: As directed polyethylene glycol 3350 17 gram/dose powder See Rx Instructions .ROUTE .COMPLEX Rx Instructions: rx Deep Sea Nasal 0.65 % aerosol,spray See Rx Instructions .ROUTE .COMPLEX Rx Instructions: rx pantoprazole 40 mg tablet,delayed release (DR/EC) 40 mg PO DAILY Qty: 90 1RF furosemide [Lasix] 20 mg tablet 20 mg PO DAILY PRN (Reason: edema) Qty: 30 0RF (DME) 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 See Rx Instructions .Route Qty: 1 0RF Rx Instructions: As directed (DME) Dexcom G7 Sensor Device See Rx Instructions .Route Qty: 4 5RF Rx Instructions: As directed cholecalciferol (vitamin D3) 50 mcg (2,000 unit) tablet 2,000 unit PO DAILY Qty: 90 3RF pregabalin [Lyrica] 25 mg capsule 25 mg PO TID Qty: 30 1RF insulin glargine [Lantus Solostar U-100 Insulin] 100 unit/mL (3 mL) insulin pen 14 unit SQ DAILY 90 Days Qty: 15 3RF (DME) pen needle, diabetic [BD Ultra-Fine Mini Pen Needle] 31 gauge x 3/16 needle See Rx Instructions .ROUTE .MEDSUPPLY Qty: 100 12RF Rx Instructions: As directed acyclovir 200 mg capsule 800 mg PO 5XDAY 7 Days Qty: 140 0RF Rx Instructions: while awake; give 5 doses in 24 hours albuterol sulfate [Ventolin HFA] 90 mcg/actuation HFA aerosol inhaler 2 inh INHALATION Q4-6H PRN (Reason: Shortness Of Breath Or Wheezing) Patient Comments: INHALE 2 PUFFS BY MOUTH EVERY 4 TO 6 HOURS NEEDED FOR SHORTNESS OF BREATH FOR WHEEZING . APPOINTMENT REQUIRED FOR FUTURE REFILLS Referrals Follow up/Referrals: Provider,Referral, MD [Primary Care Provider] - See instructions Activity Restrictions/Add. Instructions Additional Instructions/Restrictions: Please follow-up with your primary care provider. Please return to the emergency department if you develop any new or worsening symptoms or become concerned for your health. Clinical Impressions Clinical Impression: Transient alteration of awareness Print Language Print Language: Citizen Of [place] Discharge ED Provider: Oliverio Dillon General Adult HPI General Chief complaint: Recheck/Abnormal Lab/Rx Stated complaint: AMS Time Seen by Provider: 05/21/24 04:30 History of Present Illness HPI narrative: 68-year-old female with history of prior CVA with residual right-sided deficits as well as hypertension hyperlipidemia diabetes presents for episodes of fogginess tonight. She reports that she went to bed around 9. She reports that she has a bed but has not been able to get into it recently and so she has been sleeping in her lift chair. She reports that her sleep quality has been quite poor recently. She woke up around 1 AM and felt a bit confused. She reports that her family told her she seemed confused but was not slurring her speech. She went back to sleep and when she woke up she felt a little foggy again. This went away and she now feels totally normal. She reports significant right-sided weakness and some contractures of the right upper extremity, she also has some right lower extremity weakness as residual from her stroke. She denies any current headache, vision changes, numbness or weakness that is new. Denies chest pain abdominal pain shortness of breath. Reports no urinary symptoms. She reports that her only medication change recently is that she was taking Ozempic but stopped because she could not tolerate it. Related Data Home Medications ?Medication ?Instructions ?Recorded ?Confirmed albuterol sulfate 90 mcg/actuation 2 inh inhalation Q4-6H PRN 11/09/23 04/14/24 aerosol inhaler (Ventolin HFA) Shortness Of Breath Or Wheezing lancets 33 gauge (FlyCastuch Deltravis #100 ea 12/11/23 04/14/24 Plus Lancet) polyethylene glycol 3350 17 See Rx Instructions .Route .COMPLEX 12/11/23 04/14/24 gram/dose oral powder sodium chloride 0.65 % nasal spray See Rx Instructions .Route .COMPLEX 12/11/23 04/14/24 aerosol (Deep Sea Nasal) Previous Rx's ?Medication ?Instructions ?Recorded blood-glucose meter,continuous #1 ea 01/09/24 (Dexcom G7 [employer]) furosemide 20 mg tablet (Lasix) 20 mg PO DAILY PRN edema #30 tabs 01/09/24 pantoprazole 40 mg tablet,delayed 40 mg PO DAILY #90 tabs 01/09/24 release blood-glucose sensor (Dexcom G7 #4 ea 01/31/24 Sensor device) cholecalciferol (vitamin D3) 50 2,000 unit PO DAILY #90 tabs 02/03/24 mcg (2,000 unit) tablet acyclovir 200 mg capsule 800 mg (4 x 200 mg) PO 5XDAY 7 04/04/24 days #140 caps clopidogrel 75 mg tablet See Rx Instructions .Route 04/29/24 .COMPLEX #90 tabs hydrochlorothiazide 12.5 mg capsule See Rx Instructions .Route 04/29/24 .COMPLEX #90 caps pregabalin 25 mg capsule (Lyrica) 25 mg PO TID pain #30 caps 05/01/24 insulin glargine 100 unit/mL (3 14 unit (0.14 mL) SQ DAILY 90 days 05/19/24 mL) subcutaneous pen (Lantus #15 mL Solostar U-100 Insulin) pen needle, diabetic 31 gauge x #100 ea 05/19/24 3/16 (BD Ultra-Fine Mini Pen Needle) Allergies Allergy/AdvReac Type Severity Reaction Status Date / Time penicillin G Allergy Mild Hives Verified 05/21/24 14:21 Sulfa (Sulfonamide AdvReac Intermediate rash on Verified 05/21/24 14:21 Antibiotics) entire body [facility] Disclaimer: The information contained in this section may have been updated after the patient was seen, as this information can be updated by other users. Medical History High cholesterol Diabetes mellitus Vitamin D deficiency Depression Hypertension Social History Smoking Status: Never smoker alcohol intake: never substance use type: denies use current occupational status: retired Travel in the last 8 weeks: None Other Medical History Have you received the Flu Vaccine for this season: No Have you received the Pneumonia Vaccine: No ROS Obtained: Yes All systems reviewed & no additional complaints except as documented Physical Exam General General appearance: alert and in no apparent distress Head Head exam: atraumatic and normocephalic Eye Eye exam: Present normal appearance, PERRL and EOMI ENT ENT exam: Present normal oropharynx and normal external ear exam Neck Neck exam: Present normal inspection and full ROM Chest Chest inspection: Present normal inspection and symmetric chest wall rise; Absent tenderness Respiratory Respiratory exam: Present wheezes (Trace wheezing bilaterally); Absent respiratory distress Cardiovascular Cardiovascular exam: Present regular rate and normal rhythm Abdominal Exam Abdominal exam: Present soft; Absent distention, tenderness or guarding Extremities Exam Extremities exam: Present edema (Bilateral lower extremity edema noted); Absent joint swelling Back Exam Back exam: Present normal inspection; Absent tenderness Neurological Exam Neurological exam: Present alert, oriented X3, CN II-XII intact and other (Patient has significant residual deficits in the right upper extremity, and weakness in the right lower extremity as well. She otherwise has appropriate strength, sensation and cerebellar function on exam. She has no slurred speech, facial asymmetry, or word finding difficulties.) Psychiatric Psychiatric exam: Present normal affect and normal mood Skin Skin exam: Present warm, dry and normal color Lymphatic Lymphatic Findings: no adenopathy Medical Decision Making Medical Records Medical records reviewed: Yes I reviewed the patient's medical records. Screening: Per USPSTF and CDC recommendations, given the prevalence of disease in our region, it is our hospital?s policy to screen for HIV and viral Hepatitis for all patients aged 18 and over and those with ongoing risk factors. Ki Inquiry Pt receiving controlled substance: No Ki was queried for this patient: No Vital Signs: 05/21/24 04:35 05/21/24 05:00 05/21/24 05:30 Temperature 97.7 F Temperature Source Oral Pulse Rate 70 71 Pulse Rate [Left Radial] 74 Respiratory Rate 18 Blood Pressure 171/67 H Blood Pressure [Right Arm] 165/77 H Blood Pressure Mean [Right Arm] 106 Blood Pressure Source Blood Pressure Source [Right Arm] Automatic Cuff Blood Pressure Position Blood Pressure Position [Right Arm] 02 Sat by Pulse Oximetry 100 99 99 Oxygen Delivery Method Room Air 05/21/24 06:30 05/21/24 07:20 Temperature 98.0 F 98.0 F Temperature Source Oral Oral Pulse Rate 77 Pulse Rate [Left Radial] 78 Respiratory Rate 16 16 Blood Pressure 135/82 Blood Pressure [Right Arm] 174/89 H Blood Pressure Mean [Right Arm] 117 Blood Pressure Source Automatic Cuff Blood Pressure Source [Right Arm] Automatic Cuff Blood Pressure Position Sitting Blood Pressure Position [Right Arm] Sitting 02 Sat by Pulse Oximetry 95 Oxygen Delivery Method Room Air Room Air Lab Data Lab results reviewed: Yes I reviewed the patient's lab results. Lab Results 05/21/24 05:02: WBC 6.2, RBC 4.86, Hgb 12.9, Hct 38.6, MCV 79.4 L, MCH 26.5 L, MCHC 33.4, RDW 15.4, Plt Count 296, MPV 8.0, Neut % (Auto) 74.5, Lymph % (Auto) 16.3, Edgar % (Auto) 6.4, Eos % (Auto) 2.2, Baso % (Auto) 0.7, Neut # (Auto) 4.6, Lymph # (Auto) 1.0, Edgar # (Auto) 0.4, Eos # (Auto) 0.1, Baso # (Auto) 0.0, Sodium 136, Potassium 3.7, Chloride 97 L, Carbon Dioxide 31 H, Anion Gap 11.7, B UN 19 H, Creatinine 0.90, Estimated Creat Clear 66, Estimated GFR 62, Est GFR ( Amer) 76, Glucose 139 H, Calcium 9.8, Total Bilirubin 0.6, AST 23, ALT 13, Alkaline Phosphatase 106, Total Protein 8.1, Albumin 4.2, Globulin 3.9 H, Albumin/Globulin Ratio 1.1, HIV 1&2 Antibody Rapid Nonreactive 05/21/24 05:02 05/21/24 05:02 Orders (Tests/Meds): ED MEDICATIONS Discontinued Medications Generic Name Dose Route Start Last Admin Trade Name Freq PRN Reason Stop Dose Admin Acetaminophen 1,000 mg 05/21/24 05:16 05/21/24 05:40 Acetaminophen 500mg Tab PO 05/21/24 05:17 1,000 mg ONCE ONE Administration Ketorolac Tromethamine 30 mg 05/21/24 05:47 05/21/24 05:50 Ketorolac 30mg/Ml Vial IV 05/21/24 05:48 Not Given ONCE ONE Ketorolac Tromethamine 30 mg 05/21/24 05:47 05/21/24 05:53 Ketorolac 30mg/Ml Vial IM 05/21/24 05:48 Not Given ONCE ONE ORDERS Category Date Time Status CBC w/Auto Diff [Complete Blood Count Auto Diff] Stat Lab 05/21/24 05:02 Completed CMP [Comprehensive Metabolic Panel] Stat Lab 05/21/24 05:02 Completed HIV (1&2) Antibody Rapid Stat Lab 05/21/24 05:02 Completed Hep C Ab with Reflex to RNA Stat Lab 05/21/24 05:02 Received Medical Decision Narrative: 68-year-old female with history of prior stroke with right-sided deficits, on blood thinners, diabetes, hypertension, hyperlipidemia presents for a couple episodes of fogginess tonight after waking up. Currently asymptomatic. History was obtained via interactive discussion with patient, EMS. On arrival, patient is [afebrile, hemodynamically stable, satting appropriately, alert, oriented x4, GCS 15]. Full physical exam performed and significant for right upper extremity weakness, right lower extremity weakness, these are both stable for patient from baseline. Otherwise completely normal neurologic exam. Her NIH is technically 5, but as result of her residual deficits. Differential includes but is not limited to electrolyte derangement, urinary tract infection, delirium, stroke, TIA, seizure. History and exam is not consistent with stroke at this time. No indication for stroke alert. Workup initiated including CBC CMP urinalysis. On re-evaluation, patient [remains afebrile, HD stable.] She continues a normal neurologic exam but now reports mild headache. Will administer Tylenol and obtain non contrast CT head. Laboratory workup independently interpreted by me and significant for no leukocytosis, no significant electrolyte derangement, normal renal function. On repeat assessment patient reports that she is unwilling to take Tylenol. He was also offered Toradol for pain control which she also declined. She says her headache is easing off now. When she went to CT scanner, she reports that her back hurt and she was unable to lay down. I offered additional pain medication or ergonomic changes to facilitate with CT but she declined. With regards to her urine, patient declined a cath sample and we got up to the bedside commode to pee but she said it was too small for her to urinate in. After repeated discussion with patient, she reports that she wishes to go home at this time. Given patient history, exam and workup, patient's presentation most likely represents transient confusion related to patient's lack of sleep. I still wanted to obtain a CT scan given her headache and obtain a urine sample, but patient was unable/unwilling to participate in these therapies. I again offered to give her additional pain medication or to accommodate what ever position she needed in order to get the CT scan and the urine, but patient refused both of these options. Given this, patient was ultimately discharged against medical advice. She was given strict return precautions for development of signs and symptoms of stroke including facial droop, slurred speech/aphasia, unilateral weakness etc. Procedures Risk/Benefits of Procedure(s) Were Explained: Yes Critical Care Critical Care Time Critical Care Time: No
[2024-05-21 05:00] VITALS: BP 171/67; PULSE 70; O2SAT 99
[2024-05-21 05:10] LABS: Basophils % 0.7 % (0.1-2.0); Eosinophils # 0.1 K/mm3 (0.0-0.4); Eosinophils % 2.2 % (0.1-12.0); Hematocrit 38.6 % (37.0-47.0); Hemoglobin 12.9 g/dL (12.2-16.2); Lymphocytes % 16.3 % (10-50); Mean Corpuscular HGB Conc 33.4 g/dL (31.8-35.4); Mean Corpuscular Hemoglobin 26.5 pg (27.0-31.2); Mean Corpuscular Volume 79.4 fl (81-99); Monocytes # 0.4 K/mm3 (0.1-1.0); Monocytes % 6.4 % (1.7-9.3); Neutrophils # 4.6 K/mm3 (1.8-7.8); Neutrophils % 74.5 % (37.0-80.0); Platelet Count 296 K/mm3 (142-424); Red Blood Count 4.86 M/mm3 (4.20-5.40); Red Cell Distribution Width 15.4 % (11.5-17.5); White Blood Count 6.2 K/mm3 (4.8-10.8)
[2024-05-21 05:16] LABS: Albumin Level 4.2 g/dl (3.5-5.0); Chloride 97 mmol/L (98-107)
[2024-05-21 05:17] LABS: Potassium 3.7 mmoL/L (3.5-5.1); Sodium 136 mmol/L (136-145)
[2024-05-21 05:19] LABS: Alanine Aminotransferase 13 U/L (12-78); Anion Gap 11.7 mEq/L (5-15); Aspartate Amino Transferase 23 U/L (14-36); Blood Urea Nitrogen 19 mg/dl (7-17); Carbon Dioxide 31 mmol/L (22.0-30.0); Creatinine Clearance Estimated 66 mL/min (50-200); Estimated Glomerular Filt Rate 62 ml/min (>60); GFR (African American) 76 ML/MIN (>60)
[2024-05-21 05:20] LABS: Albumin/Globulin Ratio 1.1 (1.1-1.8); Alkaline Phosphatase 106 U/L (38-126); Bilirubin,Total 0.6 mg/dl (0.2-1.3); Globulin 3.9 g/dL (1.3-3.2); Glucose 139 mg/dl (74-100); Total Protein,Serum 8.1 g/dl (6.3-8.2)
[2024-05-21 05:21] LABS: Calcium 9.8 mg/dl (8.4-10.2)
[2024-05-21 05:30] VITALS: PULSE 71; O2SAT 99
[2024-05-21 05:39] LABS: HIV (1&2) Antibody Rapid NONREACTIVE (NONREACTIVE)
--- NOTE | 2024-05-21 05:39 | PC.NURSE ---
While in ct room and once pt was moved to ct table pt was unable to tolerate laying on the table. Pt brought back to room as she states I don;t want to have the scan if I have to lay on this thing . Dr. Dillon notified.
[2024-05-21] MEDS: ACETAMINOPHEN 500MG TAB 1000 MG PO (05:40)
--- NOTE | 2024-05-21 05:55 | PC.NURSE ---
Pt refused ketorolac. She stated she did not want any pain medication. Explained to pt that medication is not a narcotic but will help with her pain similar to ibuprofen but stronger. Pt repeated she did not want any pain medication. Pt did take acetaminophen crushed in applesauce.
--- NOTE | 2024-05-21 06:24 | PC.NURSE ---
Pt has orders for a urine sample. Pt states she needed to urinate assisted pt to bedside commode two person assist pt unable to support her weight. Pt is unable to urinate stating I can't use this commode I want to go home. Pt assisted back to bed. Pt offered bed lora and in and out catheter to help urinate explained to pt safety risks for walking to bathroom explained bedside commode is same height and shape of bathroom commode. Pt denied both and states I want to go home . Pt states I feel like I have to pee but I can't. Pt offered bed lora pt denied bedpan and states again I want to go home. Pt educated on risks with going home and refusing urine sample. Pt refused all further testing and refused to sign AMA paperwork. Pt currently trying to find a ride at this time.
[2024-05-21 06:30] VITALS: BP 174/89; PULSE 78; RESP 16; TEMP 36.7; O2SAT 95
[2024-05-21 07:20] VITALS: BP 135/82; PULSE 77; RESP 16; TEMP 36.7; O2SAT 97
[2024-05-22 05:14] LABS: HCV Ab Non Reactive (Non Reactive)
== END 2024-05-21 07:22 | disposition left against medical advice (07) ==
PROVIDERS: Emergency Provider Emergency Medicine
DX: R41.82 Altered mental status, unspecified (principal)
CPT/HCPCS: 80053; 85025; 86803; 87389; 99284; J1885

== ENCOUNTER 2024-05-21 13:54 | Emergency (ER) | payer OTHER, SELFPAY ==
[2024-05-21 14:14] VITALS: BP 158/85; PULSE 74; RESP 16; TEMP 36.8; O2SAT 98; BMI 24.7
[2024-05-21 14:16] VITALS: BP 158/85; PULSE 80; O2SAT 100
--- NOTE | 2024-05-21 14:26 | ED_ITS ---
<Statement entered by Rere Amado MD - 05/21/24 22:49> I was consulted by the BRIANDA, and we discussed the complexity of the problems being addressed. I approved the treatment and management plan for this patient's care in the emergency department, thus performing a substantive portion of the medical decision making. Rere Amado MD, NHI, FACEP Discharge Plan Disposition Patient Disposition: Home, Self-Care Condition: Good Chief Complaint: Weakness Prescriptions Prescriptions: No Action clopidogrel 75 mg tablet See Rx Instructions .ROUTE .COMPLEX Qty: 90 0RF Dose Instruction: TAKE 1 TABLET BY MOUTH ONCE DAILY FOR BLOOD THINNER Rx Instructions: TAKE 1 TABLET BY MOUTH ONCE DAILY FOR BLOOD THINNER hydrochlorothiazide 12.5 mg capsule See Rx Instructions .ROUTE .COMPLEX Qty: 90 0RF Dose Instruction: TAKE 1 CAPSULE BY MOUTH ONCE DAILY FOR BLOOD PRESSURE Rx Instructions: TAKE 1 CAPSULE BY MOUTH ONCE DAILY FOR BLOOD PRESSURE (DME) lancets [OneTouch Delica Plus Lancet] 33 gauge misc See Rx Instructions .ROUTE .MEDSUPPLY Qty: 100 Rx Instructions: As directed polyethylene glycol 3350 17 gram/dose powder See Rx Instructions .ROUTE .COMPLEX Rx Instructions: rx Deep Sea Nasal 0.65 % aerosol,spray See Rx Instructions .ROUTE .COMPLEX Rx Instructions: rx pantoprazole 40 mg tablet,delayed release (DR/EC) 40 mg PO DAILY Qty: 90 1RF furosemide [Lasix] 20 mg tablet 20 mg PO DAILY PRN (Reason: edema) Qty: 30 0RF (DME) Dexcom G7 Marble Cleaner Misc See Rx Instructions .Route Qty: 1 0RF Rx Instructions: As directed (DME) Dexcom G7 Sensor Device See Rx Instructions .Route Qty: 4 5RF Rx Instructions: As directed cholecalciferol (vitamin D3) 50 mcg (2,000 unit) tablet 2,000 unit PO DAILY Qty: 90 3RF pregabalin [Lyrica] 25 mg capsule 25 mg PO TID Qty: 30 1RF insulin glargine [Lantus Solostar U-100 Insulin] 100 unit/mL (3 mL) insulin pen 14 unit SQ DAILY 90 Days Qty: 15 3RF (DME) pen needle, diabetic [BD Ultra-Fine Mini Pen Needle] 31 gauge x 3/16 needle See Rx Instructions .ROUTE .MEDSUPPLY Qty: 100 12RF Rx Instructions: As directed acyclovir 200 mg capsule 800 mg PO 5XDAY 7 Days Qty: 140 0RF Rx Instructions: while awake; give 5 doses in 24 hours albuterol sulfate [Ventolin HFA] 90 mcg/actuation HFA aerosol inhaler 2 inh INHALATION Q4-6H PRN (Reason: Shortness Of Breath Or Wheezing) Patient Comments: INHALE 2 PUFFS BY MOUTH EVERY 4 TO 6 HOURS NEEDED FOR SHORTNESS OF BREATH FOR WHEEZING . APPOINTMENT REQUIRED FOR FUTURE REFILLS Referrals Follow up/Referrals: Abdullahi Jefferson MD [Primary Care Provider] - See instructions Activity Restrictions/Add. Instructions Additional Instructions/Restrictions: Please keep your follow-up with your neurologist and PCP as scheduled. Return to ER for any worsening signs or symptoms as needed. Clinical Impressions Clinical Impression: TIA (transient ischemic attack) Instructions Patient Instructions: DI for Transient Ischemic Attack Print Language Print Language: Amharic Discharge ED Provider: Tootie Andre General Adult HPI General Chief complaint: Weakness Stated complaint: Back pain Time Seen by Provider: 05/21/24 14:07 Mode of Arrival: Wheelchair Source of Information: Patient Limitations: No Limitations Description of Symptoms (Recalled from ER Triage Doc. by RN): pt states she woke up around 0000 and felt like she couldn't form her words and had a THOMAS. pt came here to the ER and ended up leaving AMA. pt states she has returned because she wants the CT but was unable to tolerate it this am due to pain in her back from her shingles. pt states she still feels like she is unable to form words at her baseline but that it is much better, pts THOMAS has subsided. pt had a CVA in October and was left with L sided paralysis and numbness. pt is refusing placement of an IV. History of Present Illness HPI narrative: Patient presents for reevaluation after leaving AMA earlier today. Patient was evaluated in the early hours of this morning for acute confusion word finding difficulty and right-sided muscle weakness. Patient does have a history of previous stroke. She underwent workup and was recommended to have CT scan of the head and CTAs of the head and neck however patient declined and left AGAINST MEDICAL ADVICE. Patient returns and states that her symptoms have since resolved but is willing to be further worked up. She has had no new symptoms but does have persistent right sided deficits from her previous stroke earlier this year. She denies chest pain fever chills hemoptysis hematochezia melena nausea vomit diarrhea. Related Data Home Medications ?Medication ?Instructions ?Recorded ?Confirmed albuterol sulfate 90 mcg/actuation 2 inh inhalation Q4-6H PRN 11/09/23 04/14/24 aerosol inhaler (Ventolin HFA) Shortness Of Breath Or Wheezing lancets 33 gauge (OneTouch Delica #100 ea 12/11/23 04/14/24 Plus Lancet) polyethylene glycol 3350 17 See Rx Instructions .Route .COMPLEX 12/11/23 04/14/24 gram/dose oral powder sodium chloride 0.65 % nasal spray See Rx Instructions .Route .COMPLEX 12/11/23 04/14/24 aerosol (Deep Sea Nasal) Previous Rx's ?Medication ?Instructions ?Recorded blood-glucose meter,continuous #1 ea 01/09/24 (Dexcom G7 Marble Cleaner) furosemide 20 mg tablet (Lasix) 20 mg PO DAILY PRN edema #30 tabs 01/09/24 pantoprazole 40 mg tablet,delayed 40 mg PO DAILY #90 tabs 01/09/24 release blood-glucose sensor (Dexcom G7 #4 ea 01/31/24 Sensor device) cholecalciferol (vitamin D3) 50 2,000 unit PO DAILY #90 tabs 02/03/24 mcg (2,000 unit) tablet acyclovir 200 mg capsule 800 mg (4 x 200 mg) PO 5XDAY 7 04/04/24 days #140 caps clopidogrel 75 mg tablet See Rx Instructions .Route 04/29/24 .COMPLEX #90 tabs hydrochlorothiazide 12.5 mg capsule See Rx Instructions .Route 04/29/24 .COMPLEX #90 caps pregabalin 25 mg capsule (Lyrica) 25 mg PO TID pain #30 caps 05/01/24 insulin glargine 100 unit/mL (3 14 unit (0.14 mL) SQ DAILY 90 days 05/19/24 mL) subcutaneous pen (Lantus #15 mL Solostar U-100 Insulin) pen needle, diabetic 31 gauge x #100 ea 05/19/24 3/16 (BD Ultra-Fine Mini Pen Needle) Allergies Allergy/AdvReac Type Severity Reaction Status Date / Time penicillin G Allergy Mild Hives Verified 05/21/24 14:21 Sulfa (Sulfonamide AdvReac Intermediate rash on Verified 05/21/24 14:21 Antibiotics) [facility] Disclaimer: The information contained in this section may have been updated after the patient was seen, as this information can be updated by other users. Medical History High cholesterol Diabetes mellitus Vitamin D deficiency Depression Hypertension Social History Smoking Status: Never smoker alcohol intake: never substance use type: denies use current occupational status: retired Travel in the last 8 weeks: None Other Medical History Have you received the Flu Vaccine for this season: No Have you received the Pneumonia Vaccine: No ROS Obtained: Yes Systems reviewed as appropriate & no additional complaints except as documented Physical Exam General General appearance: alert and in no apparent distress Respiratory Respiratory exam: Present normal lung sounds bilaterally Cardiovascular Cardiovascular exam: Present regular rate Neurological Exam Neurological exam: Present alert and oriented X3 Medical Decision Making Medical Records Medical records reviewed: Yes I reviewed the patient's medical records. Screening: Per USPSTF and CDC recommendations, given the prevalence of disease in our region, it is our hospital?s policy to screen for HIV and viral Hepatitis for all patients aged 18 and over and those with ongoing risk factors. Ki Inquiry Pt receiving controlled substance: No Vital Signs: 05/21/24 14:14 05/21/24 14:16 05/21/24 14:30 Temperature 98.3 F Temperature Source Oral Pulse Rate 80 71 Pulse Rate [Left] 74 Respiratory Rate 16 Blood Pressure 158/85 H 179/71 H Blood Pressure [Right Arm] 158/85 H Blood Pressure Mean [Right Arm] 109 Blood Pressure Source [Right Arm] Automatic Cuff Blood Pressure Position [Right Arm] Sitting 02 Sat by Pulse Oximetry 98 100 99 Oxygen Delivery Method Room Air Room Air Room Air Orders (Tests/Meds): ED MEDICATIONS Discontinued Medications Generic Name Dose Route Start Last Admin Trade Name Freq PRN Reason Stop Dose Admin Iopamidol 80 ml 05/21/24 15:09 05/21/24 15:10 Iopamidol-370 (76%);100ml Bottle IV 05/21/24 15:10 80 ml ONCE ONE Administration Oxycodone HCl 5 mg 05/21/24 14:27 05/21/24 14:46 Oxycodone 5mg Immediate Release Tablet PO 05/21/24 14:28 Not Given ONCE ONE Sodium Chloride 10 ml 05/21/24 15:09 05/21/24 15:10 Sodium Chloride 0.9% 10ml Syr (Rad Only) IV 05/21/24 15:10 10 ml ONCE ONE Administration Sodium Chloride 50 ml 05/21/24 15:09 05/21/24 15:10 0.9 % Sodium Chloride 50 Ml Vial IV 05/21/24 15:10 50 ml ONCE ONE Administration ORDERS Category Date Time Status CT angio head Stat Cat Scan 05/21/24 14:[address] angio neck Stat Cat Scan 05/21/24 14:[address] head/brain wo con Stat Cat Scan 05/21/24 14:27 Completed Medical Decision Narrative: In summary patient is a 68-year-old female who presents to the emergency department for evaluation of strokelike symptoms. Patient is normotensive with a blood pressure 158/85 heart rate 74 O2 sat 98% on room air breathing 16 times a minute upon arrival, afebrile. Patient has right-sided facial droop and some muscle weakness on the right side of her body but all of which are persistent from her previous stroke. She has no new focal findings and Glascow coma score is 15 she is oriented person place and circumstance.. Differential diagnosis includes TIA or stroke extension from previous etc. Initial workup will be conducted with CT of the head without contrast CTA of the head and neck and pre vious labs done of this date. Patient currently has no complaints thus initial interventions are deferred for now. My informal interpretation of her imaging shows no acute intracranial process or large vessel occlusion prior to radiology read and that is confirmed by radiology. Patient remains asymptomatic and thus is appropriate for discharge with close follow-up with her stroke doctor and PCP or return to ER for any worsening signs or symptoms. Critical Care Critical Care Time Critical Care Time: No
--- NOTE | 2024-05-21 14:26 | CT_ITS ---
FINAL REPORT TECHNIQUE: thin section axial CT with and without IV contrast supplemented with multiplanar 3-D reconstruction of the head. This study was performed with techniques to keep radiation doses as low as reasonably achievable, (ALARA)individualized dose reduction techniques using automated exposure control or adjustment of mA and/or kV according to the patient's size were employed. CLINICAL HISTORY: Acute confusion, previous stroke COMPARISON: 11/09/2023 FINDINGS: The cranial circulation is unremarkable. There is no significant stenosis, aneurysm or occlusion. There is a dominant left A1 segment. The head is asymmetrically positioned in the gantry. IMPRESSION: No evidence of aneurysm or major branch occlusion. Reviewed, Interpreted and Dictated by Asher Zafar MD Transcribed by Danna Stewart Authenticated and [facility]
--- NOTE | 2024-05-21 14:26 | CT_ITS ---
FINAL REPORT TECHNIQUE: NASCET technique utilized for stenosis evaluation. This study was performed with techniques to keep radiation doses as low as reasonably achievable (ALARA). Individualized dose reduction techniques using automated exposure control or adjustment of mA and/or kV according to the patient's size were employed. CLINICAL HISTORY: Acute confusion, previous stroke FINDINGS: RIGHT CAROTID: There is no significant stenosis in the common carotid artery. There is moderate vascular calcification of the proximal internal carotid artery measuring less than 50%. LEFT CAROTID: There is no significant stenosis in the common carotid artery. There is moderate vascular calcification of the proximal internal carotid artery measuring approximately 60%. VERTEBRALS: The vertebral arteries are codominant. No significant stenosis is present. IMPRESSION: Less than 50% stenosis of the proximal right ICA. Approximately 60% stenosis of the proximal left ICA. Reviewed, Interpreted and Dictated by Asher Zafar MD Transcribed by Danna Stewart Authenticated and [facility]
--- NOTE | 2024-05-21 14:27 | CT_ITS ---
FINAL REPORT TECHNIQUE: Axial CT images were performed through the head. Coronal reformatted images were submitted. This study was performed with techniques to keep radiation doses as low as reasonably achievable (ALARA). Individualized dose reduction techniques using automated exposure control or adjustment of mA and/or kV according to the patient's size were employed. CLINICAL HISTORY: Acute confusion COMPARISON: 11/09/2023 FINDINGS: There is mild atrophy with proportional ventriculomegaly. There is patchy decreased attenuation in the deep white matter consistent with chronic ischemia. There is encephalomalacia in the left atkins radiata which was better defined on the previous exam, probably due to sequela of old lacunar infarct. There is no evidence of hemorrhage. There is no mass or edema identified. There is no abnormal extra-axial fluid seen. The sinuses are well aerated. IMPRESSION: Atrophy and chronic ischemic changes. No acute intracranial abnormality. Reviewed, Interpreted and Dictated by Asher Zafar MD Transcribed by Danna Stewart Authenticated and [facility]
[2024-05-21 14:30] VITALS: BP 179/71; PULSE 71; O2SAT 99
--- NOTE | 2024-05-21 14:49 | PC.NURSE ---
pt refused pain medication and states she is not in any pain.
[2024-05-21] MEDS: SODIUM CHLORIDE 0.9% 10ML SYR (RAD ONLY) 10 ML IV (15:10)
[2024-05-21] MEDS: 0.9 % SODIUM CHLORIDE 50 ML VIAL IV (15:10)
[2024-05-21] MEDS: IOPAMIDOL-370 (76%);100ML BOTTLE 80 ML IV (15:10)
[2024-05-21 16:17] VITALS: BP 154/88; PULSE 71; RESP 16; TEMP 36.8; O2SAT 97
== END 2024-05-21 16:21 | disposition home or self-care (01) ==
PROVIDERS: Emergency Provider Emergency Medicine; PCP Family Medicine
DX: M54.9 Dorsalgia, unspecified (principal); R53.1 Weakness; G45.9 Transient cerebral ischemic attack, unspecified
CPT/HCPCS: 70450; 70496; 70498; 99284; Q9967

== ENCOUNTER 2024-12-04 09:08 | Outpatient (CLI) | payer MEDICARE, OTHER, SELFPAY ==
[2024-12-04 17:07] LABS: Basophils % 0.6 % (0.1-2.0); Eosinophils # 0.1 Kmm3 (0.0-0.4); Eosinophils % 2.4 % (0.1-12.0); Hematocrit 36.6 % (37.0-47.0); Hemoglobin 12.2 g/dL (12.2-16.2); Lymphocytes # 1.1 K/mm3 (0.7-4.5); Mean Corpuscular HGB Conc 33.3 g/dL (31.8-35.4); Mean Corpuscular Hemoglobin 26.8 pg (27.0-31.2); Mean Corpuscular Volume 80.3 fl (81-99); Mean Platelet Volume 11.1 fl (7.4-10.4); Monocytes # 0.4 K/mm3 (0.1-1.0); Monocytes % 7.2 % (1.7-9.3); Neutrophils # 3.4 K/mm3 (1.8-7.8); Neutrophils % 67.6 % (37.0-80.0); Nucleated Red Blood Cells # 0 10^3/uL; Nucleated Red Blood Cells % 0 %; Platelet Count 220 K/mm3 (142-424); Red Blood Count 4.56 M/mm3 (4.20-5.40); Red Cell Distribution Width 13.2 % (11.5-17.5); Red Cell Distribution Width-SD 38.1 fL
[2024-12-04 17:30] LABS: Albumin Level 3.9 g/dl (3.5-5.0); Chloride 105 mmol/L (98-107)
[2024-12-04 17:31] LABS: Potassium 4.2 mmoL/L (3.5-5.1); Sodium 141 mmol/L (136-145)
[2024-12-04 17:33] LABS: Alanine Aminotransferase 10 U/L (12-78); Alkaline Phosphatase 85 U/L (38-126); Anion Gap 10.2 mEq/L (5-15); Aspartate Amino Transferase 18 U/L (14-36); Bilirubin,Total 0.9 mg/dl (0.2-1.3); Blood Urea Nitrogen 15 mg/dl (7-17); Carbon Dioxide 30 mmol/L (22.0-30.0); Estimated Glomerular Filt Rate 62 ml/min (>60); GFR (African American) 75 ML/MIN (>60)
[2024-12-04 17:34] LABS: Albumin/Globulin Ratio 1.2 (1.1-1.8); Calcium 9.7 mg/dl (8.4-10.2); Chol/HDL Ratio 3.4 (1-3.5); Cholesterol 167 mg/dl (140-200); Globulin 3.3 g/dL (1.3-3.2); Glucose 103 mg/dl (74-100); HDL Cholesterol 49 mg/dl (40-60); Magnesium 1.7 mg/dl (1.6-2.3); Total Protein,Serum 7.2 g/dl (6.3-8.2); Triglycerides 113 mg/dl (30-150); VLDL Cholesterol 23 mg/dL (0-40)
[2024-12-04 17:45] LABS: Direct LDL Cholesterol 88.65 mg/dL (100-129)
[2024-12-04 17:49] LABS: 25-OH Vitamin D, Total 18.6 ng/mL (30-100)
[2024-12-04 17:54] LABS: Triiodothryronine (T3) Uptake 36 % (23.5-40.5)
[2024-12-04 17:55] LABS: T4 (Thyroxine) 11.1 ug/dl (5.53-11.0)
[2024-12-04 18:08] LABS: Thyroid Stimulating Hormone 1.97 uIU/mL (0.465-4.68)
[2024-12-04 18:11] LABS: Hemoglobin A1C 5.7 % (4.0-6.0)
[2024-12-04 18:22] LABS: Hepatitis C Ab Qual. W/ RFX NEGATIVE (Negative)
[2024-12-04 19:02] LABS: HIV Combo NEGATIVE (Negative)
== END 2024-12-04 23:59 | disposition home or self-care (01) ==
LOC: LAB.DROPOF 12-07 09:12
PROVIDERS: PCP Nurse Practitioner Family; Visit Provider Nurse Practitioner Family
DX: E11.9 Type 2 diabetes mellitus without complications (principal); E78.5 Hyperlipidemia, unspecified; E55.9 Vitamin D deficiency, unspecified; I10 Essential (primary) hypertension; Z11.59 Encounter for screening for other viral diseases; Z11.4 Encounter for screening for human immunodeficiency virus [HIV]
CPT/HCPCS: 80053; 80061; 82306; 83036; 83735; 84436; 84443; 84479; 85025; 86803; 87389